=== PATIENT | female | born 1930 | race Hispanic/Latino ===

== ENCOUNTER 2018-04-03 22:50 | Observation (INO) | payer OTHER ==
--- OUTSIDE RECORDS SUMMARY | 2018-04-03 22:52 | XMS REPORT | Clinical Summary ---
:1930 Author Organization [facility] Address [address] [place] [address] Care Team Providers Name Role Phone Asked, No Pcp Primary Care Provider Unavailable Allergies Active Allergy Reactions Severity Noted Date Comments Codeine GI Intolerance 05/20/2016 Current Medications Prescription Sig. Disp. Refills Start Date End Date Status alendronate (FOSAMAX) Take 70 mg by mouth 03/28/2016 Active 70 MG tablet every 7 days. amLODIPine (NORVASC) 10 Take 10 mg by mouth 03/08/2016 Active MG tablet daily. aspirin (ECOTRIN) 81 MG Take 1 tablet(s) Active enteric coated tablet every day by oral route. cholecalciferol, Take 1 capsule(s) Active vitamin D3, (VITAMIN every day by oral D3) 2,000 unit capsule route. capsule cycloSPORINE (RESTASIS) Restasis 0.05 % eye Active 0.05 % ophthalmic drops in a emulsion dropperette ANTIOX Ocuvite Adult 50+ Active #11/OM3/DHA/EPA/LUT/RAMIREZ (OCUVITE ADULT 50+ ORAL) OM-3/E/LINOL/ALA/OLEIC/ [place] 3-6-9 Active GLA/LIP (OMEGA 3-6-9 ORAL) atorvastatin (LIPITOR) Take 10 mg by mouth Active 10 MG tablet daily. lisinopril Take 20 mg by mouth Active (PRINIVIL,ZESTRIL) 20 daily. 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 Essential hypertension 11/18/2016 Hyperparathyroidism, primary 05/20/2016 Resolved Problems Problem Noted Date Resolved Date Aortic valve disorder 11/18/2016 11/20/2017 Encounters Date Type Specialty Care Team Description 11/20/2017 Multidisciplinary Visit Cardiology Juan Yeboah S/P TAVR ( transcatheter aortic valve replacement) (Primary Dx); MD Kristi Essential hypertension 08/13/2017 Orders Only Cardiology Shi Chen MA S/P TAVR (transcatheter aortic valve replacement) (Primary Dx); Aortic valve disorder after 04/02/2017 Family History Medical History Relation Name Comments Hypertension Father Heart failure Mother Relation Name Status Comments Father Mother Social History Tobacco Use Types Packs/Day Years Used Date Never Smoker Smokeless Tobacco: Never Used Alcohol Use Drinks/Week oz/Week Comments No Sex Assigned at Date Recorded Not on file Last Filed Vital Signs Vital Sign Reading Time Taken Blood Pressure 178/77 11/20/2017 1:01 PM [facility] Pulse 72 11/20/2017 1:01 PM [employer] Temperature 36.5 C (97.7 F) 11/20/2017 1:01 PM [employer] Respiratory Rate 14 11/20/2017 1:01 PM [employer] Oxygen Saturation - - Inhaled Oxygen Concentration - - Weight 52.2 kg (115 lb) 11/20/2017 1:01 PM [employer] Height 152.4 cm (5') 11/20/2017 1:01 PM [employer] Body Mass Index 22.46 11/20/2017 1:01 PM [employer]ER Plan of Treatment Date Type Specialty Care Team Description 11/12/2018 Multidisciplinary Visit Cardiology Juan Yeboah MD [address] [address] Health Maintenance Due Date Last Done Comments SHINGRIX VACCINE (#1) 1981 ZOSTER VACCINE 1991 PNEUMOCOCCAL POLYSACCHARIDE VACCINE AGE 65 AND OVER 1996 PNEUMOCOCCAL-13 1996 INFLUENZA VACCINE 04/22/2018 Procedures Procedure Name Priority Date/Time Associated Comments Diagnosis ECG 12-LEAD Routine 11/20/2017 12:59 S/P TAVR Results for this PM [employer] ADVISER (transcatheter procedure are in aortic valve the results replacement) section. ECHOCARDIOGRAM 2D Routine 11/20/2017 10:21 S/P TAVR Results for this COMPLETE W MMODE AM [employer]ATIONAL ADVISER (transcatheter procedure are in SPECTRAL COLOR DOPPLER aortic valve the results (75275) replacement) section. Aortic valve disorder after 04/02/2017 Results ECG 12 lead (11/20/2017 12:59 PM) Ventricular rate 71 [facility] Atrial rate 71 [facility] MT interval 142 [facility] QRSD interval 108 [facility] QT interval 398 [facility] QTC interval 432 [facility] P axis 1 65 [facility] QRS axis 1 -85 [facility] T wave axis 34 [facility] EKG impression Normal sinus rhythm with sinus arrhythmia-Left axis deviation- Possible Lateral infarct (cited on or before 19-NOV-2016)-Inferior-posterior infarct (cited on or before 19-NOV-2016)-Abnormal ECG-In automated comparison with ECG of 19-NOV-2016 [facility] 14:18,-premature ventricular complexes are no longer present-Right bundle branch block is no longer present-Questionable change in initial forces of Anterolateral leads-Electronically Signed By Salima Romano ([id number]) on 2017 8:27:19 PM Performing Organization Address City/State/Zipcode Phone Number [facility] [address] [place] [address] Echocardiogram complete w contrast and 3D if needed (11/20/2017 10:21 AM) Narrative Performed At [facility] Echocardiography Report Pat.Name:RADHA TRAN [facility].ID:[id number] .Date: 11/20/2017Refer.MD:JUAN YEBOAH MD Exam Time: 9:48:00 AMStudy Type:Routine Echo Height:63inWeight: 119lb BSA: 1.55 m2 DOBAge:1930,87Y Sex: FEMALEBP:151/84 HR:75 bpm Sonogrphr: Joan Balbuena, RCS, RCCS, CCT Pat. Stat.:OutpatientRoom:[facility] TapeVol: [facility], Study Status:Final Echo Event ID:[id number] Order ID:[id number] Reason for Study:Valvular disease, known -re-eval with status change, TAVR History / Clinical:Chronic Renal Failure, Hypertension, Valvular Heart Disease; Aortic Stenosis Procedures:2D Echo, Colorflow Doppler Race: SUMMARY: LV EF is lower limits of normal. Wall motion abnormalities present. No paravalvular aortic regurgitation. Normal prosthetic valve velocity and gradient. FINDINGS: LV: LV size is normal. LV EF is lower limits of normal. EstimatedEF is 50-54%. RV: RV size is normal. RV function is normal. LA: LA volume is moderately enlarged. RA: RA size is normal. AO: Aortic root diameter is normal. KAYLEE: No pericardial effusion. IAS:Interatrial septum is aneurysmal. AV: Prosthetic aortic valve. No paravalvular aortic regurgitation.Normal prosthetic valve velocity and gradient.Transcatheter AV Doppler velocity index is 0.68 (normal>0.50). MV: Mild thickening and calcification of mitral leaflets. Mild mitralannular calcification. Mild mitral regurgitation. PV: No structural PV abnormalities noted. TV: No structural TV abnormalities noted. Mild tricuspid regurgitation Skinner: LV relaxation is impaired. LV filling pressure is elevated. Other:Estimated PA systolic pressure is 40 mmHg, assuming a mean RAPof 5 mmHg. MEASUREMENTS: 2D Parasternal Long [place] LVOT 1.8 cmLA Ds4 cm LVIDd4.8 cmIndex3.1 cm/m Ao An2 cm LVIDs3.5 cmAo Rtd 2.6 cm Index1.7 cm/m LV%fs 28.3 % LV Xfad782.3 g(87-129) IVSd 0.9 cmLVM Index 82.8 g/m2 LVPWd0.7 cmRWT0.3 LA Volume LA Vol85.2 mvUjqtd91.9 ml/m DOPPLER AV For Flow/JULI AV pkVel 178.3 cm/s (100-170) AV AC/ET 0.2 AV mnVel 109.1 cm/Bubba TVI35.6 cm AV pkPG 12.7 mmHgAVpkAcRt 2441.5 cm/s2 AV Mean G5.9 mmHgAV GkWz449.1 cm/s2 AV AC 79 msec (83-118) AV Area1.7 cm2(3-5) AV ET326 msec LVOT For Flow LVOT Area2.5 cm2 LVOT SV 61.6 ml KKBDikSsi065.9 cm/sHR70.2 bpm LVOTpkPG 4.6 mmHgLVOT CO4.3 l/min LVOTmnPG 2.3 mmHgLVOT CI2.8 l/m/m2 LVOT TVI24.2 cm WALL MOTION: RESTING WALL MOTION: Wall Index=1.6 Signed 11/20/2017 10:49 AM Vargas Miles MD Procedure Note Interface, Radiology Results In - 11/20/2017 10:49 AM [facility]OCATIONAL [facility]ER [facility] Echocardiography Report Pat.Name: RADHA TRAN Pat.ID: [id number] St.Date: 11/20/2017 Refer.MD: JUAN YEBOAH MD Exam Time: 9:48:00 AM Study Type:Routine Echo Height: 63in Weight: 119lb BSA: 1.55 m2 Age: 11 1930,87Y Sex: FEMALE BP: 151/84 HR: 75 bpm Sonogrphr: Joan Balbuena, RCS, RCCS, CCT Pat. Stat.:Outpatient Room: [address] Vol: [facility], Study Status:Final Echo Event ID:[id number] Order ID: [id number] Reason for Study:Valvular disease, known -re-eval with status change, TAVR History / Clinical:Chronic Renal Failure, Hypertension, Valvular Heart Disease; Aortic Stenosis Procedures:2D Echo, Colorflow Doppler Race: SUMMARY: LV EF is lower limits of normal. Wall motion abnormalities present. No paravalvular aortic regurgitation. Normal prosthetic valve velocity and gradient. FINDINGS: LV: LV size is normal. LV EF is lower limits of normal. Estimated EF is 50-54%. RV: RV size is normal. RV function is normal. LA: LA volume is moderately enlarged. RA: RA size is normal. AO: Aortic root diameter is normal. KAYLEE: No pericardial effusion. IAS: Interatrial septum is aneurysmal. AV: Prosthetic aortic valve. No paravalvular aortic regurgitation. Normal prosthetic valve velocity and gradient. Transcatheter AV Doppler velocity index is 0.68 (normal >0.50). MV: Mild thickening and calcification of mitral leaflets. Mild mitral annular calcification. Mild mitral regurgitation. PV: No structural PV abnormalities noted. TV: No structural TV abnormalities noted. Mild tricuspid regurgitation Skinner: LV relaxation is impaired. LV filling pressure is elevated. Other: Estimated PA systolic pressure is 40 mmHg, assuming a mean RAP of 5 mmHg. MEASUREMENTS: 2D Parasternal Long [place] LVOT 1.8 cm LA Ds 4 cm LVIDd 4.8 cm Index 3.1 cm/m Ao An 2 cm LVIDs 3.5 cm Ao Rtd 2.6 cm Index 1.7 cm/m LV%fs 28.3 % LV Mass 128.3 g (87-129) IVSd 0.9 cm LVM Index 82.8 g/m2 LVPWd 0.7 cm RWT 0.3 LA Volume LA Vol 85.2 ml Index 54.9 ml/m DOPPLER AV For Flow/JULI AV pkVel 178.3 cm/s (100-170) AV AC/ET 0.2 AV mnVel 109.1 cm/s AV TVI 35.6 cm AV pkPG 12.7 mmHg AVpkAcRt 2441.5 cm/s2 AV Mean G 5.9 mmHg AV DeRt 546.1 cm/s2 AV AC 79 msec (83-118) AV Area 1.7 cm2 (3-5) AV ET 326 msec LVOT For Flow LVOT Area 2.5 cm2 LVOT SV 61.6 ml LVOTpkVel 106.9 cm/s HR 70.2 bpm LVOTpkPG 4.6 mmHg LVOT CO 4.3 l/min LVOTmnPG 2.3 mmHg LVOT CI 2.8 l/m/m2 LVOT TVI 24.2 cm WALL MOTION: RESTING WALL MOTION: Wall Index=1.6 Signed 11/20/2017 10:49 AM Vargas Miles MD Performing Organization Address [facility]/State/[facility] Phone Number [facility] [address] [place] [address] after 04/02/2017 Insurance Payer Benefit Plan / Group Subscriber ID Type Phone Address MEDICARE MEDICARE PART A AND B xxxxxxxxxx Medicare [place], [place] AETNA AETNA HMO,POS,EPO, MC/EC xxxxxxxxx HMO [phone] [address]
[2018-04-03] MEDS ORDERED: LEVALBUTEROL 1.25 MG/3 ML NEB ONE (23:17)
[2018-04-03 23:52] LABS: Absolute Lymphocytes (CBC) 2.6 K/uL (0.7-4.9); Absolute Monocytes 0.7 K/uL (0.1-1.3); Absolute Neutrophil 2.8 K/uL (1.8-8.0); Basophils % 0.6 % (0-1.3); Eosinophils % 1.1 % (0-4.4); Hematocrit 35.6 % (36.0-45.0); Lymphocytes % 42.3 % (15.3-44.8); MCH 33.8 pg (27.0-35.0); MCV 96.5 fL (80-100); MPV 9.9 fL (7.6-11.3); RBC Red Blood Cell Count 3.69 M/uL (3.86-4.86)
[2018-04-04 00:04] LABS: Protime INR 0.96
[2018-04-04 00:26] LABS: CKMB Creatine Kinase MB 1.1 ng/mL (0.3-3.6); Magnesium 1.8 mg/dL (1.8-2.4); Potassium 3.8 mmol/L (3.5-5.1)
[2018-04-04] MEDS ORDERED: NA CHLORIDE 0.9% 500 ML ONE (00:52)
--- NOTE | 2018-04-04 03:17 | EDPHYS ---
Physician Documentation [facility] Name: Radha Tran Age: 87 yrs Sex: Female : 1930 Arrival Date: 04/03/2018 Time: 22:51 Bed 2 Private MD: ED Physician Lalit Tee HPI: 04/04 00:01 This 87 yrs old Female presents to ER via EMS with complaints of Shortness Of rn Breath. 00:01 The patient has shortness of breath at rest. Onset: The symptoms/episode began/occurred rn just prior to arrival. Duration: The symptoms are continuous, but are steadily getting better. The patient's shortness of breath is aggravated by nothing, is alleviated by nothing. Associated signs and symptoms: Pertinent positives: This patient does not have any pertinent positive signs or symptoms associated with shortness of breath. Pertinent negatives: chest pain, non-productive cough, productive cough, fever, hemoptysis, loss of consciousness, vomiting. Severity of symptoms: At their worst the symptoms were moderate in the emergency department the symptoms have improved. The patient has not experienced similar symptoms in the past. Sitting at table at rest, + sudden onset sob, no chest pain, felt fine prior, no fever/cough, no hx of dvt/pe, no recent travel, has family wedding tomorrow. . Historical: - Allergies: 04/03 22:55 Codeine; aa1 - Home Meds: 22:55 alendronate 70 mg Oral tab 1 tab once wkly for Post-Menopausal Osteoporosis [Active]; aa1 amlodipine 10 mg tab 1 tab once daily for Hypertension [Active]; lisinopril 20 mg Oral tab 1 tab once daily for Hypertension [Active]; - PMHx: 22:55 Hypertension; Osteoporosis; aa1 - PSHx: 22:55 Aortic valve replacement; aa1 - Immunization history:: Pneumococcal vaccine is up to date, Flu vaccine is up to date. - Social history:: Smoking status: Patient/guardian denies using tobacco. - Ebola Screening: : Patient denies exposure to infectious person Patient denies travel to an Ebola-affected area in the 21 days before illness onset. - Family history:: not pertinent. - Hospitalizations: : No recent hospitalization is reported. ROS: 04/04 00:01 Constitutional: Negative for fever, chills, and weight loss, Eyes: Negative for injury, rn pain, redness, and discharge, Cardiovascular: Negative for chest pain, and edema Respiratory: Negative for cough, wheezing, and pleuritic chest pain, Abdomen/GI: Negative for abdominal pain, nausea, vomiting, diarrhea, and constipation, MS/Extremity: Negative for injury and deformity, Skin: Negative for injury, rash, and discoloration, Neuro: Negative for headache, weakness, numbness, tingling, and seizure. Exam: 00:01 Constitutional: This is a well developed, well nourished patient who is awake, alert, rn and in no acute distress. Head/Face: Normocephalic, atraumatic. Eyes: Pupils equal round and reactive to light, extra-ocular motions intact. Lids and lashes normal. Conjunctiva and sclera are non-icteric and not injected. Cornea within normal limits. Periorbital areas with no swelling, redness, or edema. ENT: no tongue swelling, no stridor Neck: Trachea midline, no thyromegaly or masses palpated, and no cervical lymphadenopathy. Supple, full range of motion without nuchal rigidity, or vertebral point tenderness. No Meningismus. Cardiovascular: Regular rate and rhythm with a normal S1 and S2. No gallops, murmurs, or rubs. Normal PMI, no JVD. No pulse deficits. Respiratory: mild tachypnea, clear bilateral breath sounds Abdomen/GI: Soft, non-tender, with normal bowel sounds. No distension or tympany. No guarding or rebound. No evidence of tenderness throughout. MS/ Extremity: Pulses equal, no cyanosis. Neurovascular intact. Full, normal range of motion. Equal circumference. Neuro: Awake and alert, GCS 15, oriented to person, place, time, and situation. Cranial nerves II-XII grossly intact. Motor strength 5/5 in all extremities. Sensory grossly intact. Vital Signs: 04/03 22:55 BP 130 / 80; Pulse 85; Resp 20; Temp 98.1(O); Pulse Ox 98% on R/A; Weight 52.16 kg; aa1 Height 5 ft. 0 in. (152.40 cm); Pain 0/10; 23:30 BP 129 / 85; Pulse 86; Resp 18; Pulse Ox 99% on 2 lpm NC; aa1 04/04 00:12 BP 133 / 87; Pulse 94; Resp 16; Pulse Ox 98% on 2 lpm NC; Pain 0/10; aa1 01:03 BP 130 / 66; Pulse 92; Resp 20; Pulse Ox 94% on 2 lpm NC; Pain 0/10; aa1 02:22 BP 117 / 66; Pulse 91; Resp 18; Pulse Ox 98% on 2 lpm NC; Pain 0/10; aa1 04:00 BP 128 / 92; Pulse 90; Resp 17; Pulse Ox 97% on R/A; lp1 04/03 22:55 Body Mass Index 22.46 (52.16 kg, 152.40 cm) aa1 MDM: 04/03 22:58 Patient medically screened. rn 04/04 03:15 Differential diagnosis: Anxiety Reaction CHF exacerbation, Chronic Obstructive rn Pulmonary Disease Myocardial Infarction pneumonia, Pneumothorax pulmonary edema, Pulmonary Embolism. Data reviewed: vital signs, nurses notes, lab test result(s), EKG, radiologic studies, CT scan, plain films, and as a result, I will admit patient. Counseling: I had a detailed discussion with the patient and/or guardian regarding: the historical points, exam findings, and any diagnostic results supporting the discharge/admit diagnosis, lab results, radiology results, the need for further work-up and treatment in the hospital. Response to treatment: the patient's symptoms have markedly improved after treatment, the patient is now symptom free, and as a result, I will admit patient. Admission orders: after a detailed discussion of the patient's condition and case, the admit orders are written by me. ED course: Severe CAD on CT chest, no acute findings, will admit given sudden onset dyspnea and no clear etiology on w/u. + bigeminy on monitor may be sign of heart irritability. . 04/03 23:04 Order name: Blood Culture Adult (2) rn 04/03 23:04 Order name: BMP; Complete Time: 00:36 rn 04/03 23:04 Order name: CBC with Diff; Complete Time: 00:01 rn 04/03 23:04 Order name: Ckmb; Complete Time: 00:36 rn 04/03 23:04 Order name: CPK; Complete Time: 00:36 rn 04/03 23:04 Order name: D-Dimer; Complete Time: 00:36 rn 04/03 23:04 Order name: XRAY CXR (1 view) rn 04/03 23:04 Order name: Magnesium; Complete Time: 00:36 rn 04/03 23:04 Order name: NT PRO-BNP; Complete Time: 00:36 rn 04/03 23:04 Order name: PT-INR; Complete Time: 00:07 rn 04/03 23:04 Order name: Ptt, Activated; Complete Time: 00:07 rn 04/03 23:04 Order name: Troponin (emerg Dept Use Only); Complete Time: 00:36 rn 04/04 00:37 Order name: CT Chest For PE Angio rn 04/03 23:04 Order name: EKG; Complete Time: 23:05 rn 04/03 23:04 Order name: Cardiac monitoring; Complete Time: 23:13 rn 04/03 23:04 Order name: EKG - Nurse/Tech; Complete Time: 23:13 rn 04/03 23:04 Order name: IV Saline Lock; Complete Time: 23:13 rn 04/03 23:04 Order name: Labs collected and sent; Complete Time: 23:13 rn 04/03 23:05 Order name: O2 Per Protocol; Complete Time: 23:12 rn 04/03 23:05 Order name: O2 Sat Monitoring; Complete Time: 23:12 rn Administered Medications: 04/03 23:17 Drug: Xopenex 1.25 mg Route: Inhalation; aa1 04/04 00:51 Drug: NS 0.9% 500 ml Route: IV; Rate: bolus; Site: right forearm; aa1 01:20 Follow up: IV Status: Completed infusion aa1 03:35 Drug: Aspirin Chewable Tablet 324 mg Route: PO; lp1 04:19 Follow up: Response: No adverse reaction lp1 04:37 Drug: Magnesium Sulfate 1 grams Route: IVPB; Infused Over: 1 hrs; Site: right forearm; aa1 04:37 Follow up: IV Status: Infusion continued upon admission aa1 Disposition: 04/04/18 03:17 Hospitalization ordered by Katja Okeefe for Inpatient Admission. Preliminary diagnosis are Dyspnea, unspecified, Atherosclerotic heart disease of [place] coronary artery, Ventricular premature depolarization. - Bed requested for Telemetry/MedSurg (Inpatient). - Status is Inpatient Admission. aa1 - Condition is Stable. - Problem is new. - Symptoms have improved. UTI on Admission? No Signatures: Dispatcher [employer] Giulia Ramirez RN RN kl Jacy Collins RN RN aa1 Lalit Tee MD MD rn Pena, Laura, RN RN lp1 Corrections: (The following items were deleted from the chart) 04:18 03:17 Hospitalization Ordered by Katja Okeefe MD for Inpatient Admission. Preliminary diagnosis is Dyspnea, unspecified; Atherosclerotic heart disease of [place] coronary artery; Ventricular premature depolarization. Bed requested for Telemetry/MedSurg (Inpatient). Status is Inpatient Admission. Condition is Stable. Problem is new. Symptoms have improved. UTI on Admission? No. rn 04:18 04:18 04/04/2018 03:17 Hospitalization Ordered by Katja Okeefe MD for Inpatient kl Admission. Preliminary diagnosis is Dyspnea, unspecified; Atherosclerotic heart disease of [place] coronary artery; Ventricular premature depolarization. Bed requested for Telemetry/MedSurg (Inpatient). Status is Inpatient Admission. Condition is Stable. Problem is new. Symptoms have improved. UTI on Admission? No. kl 04:59 04:18 04/04/2018 03:17 Hospitalization Ordered by Katja Okeefe MD for Inpatient aa1 Admission. Preliminary diagnosis is Dyspnea, unspecified; Atherosclerotic heart disease of [place] coronary artery; Ventricular premature depolarization. Bed requested for Telemetry/MedSurg (Inpatient). Status is Inpatient Admission. Condition is Stable. Problem is new. Symptoms have improved. UTI on Admission? No. kl
--- NOTE | 2018-04-04 03:17 | ER ---
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 EMS reports RA O2 sat of 96% on arrival. Denies any hx of respiratory issues. Pt reports symptoms have improved but still feels short of breath. Transition of care: patient was not received from another setting of care. Onset of symptoms was April 03, 2018. Risk Assessment: Do you want to hurt yourself or someone else? Patient reports no desire to harm self or others. Initial Sepsis Screen: Does the patient meet any 2 criteria? No. Patient's initial sepsis screen is negative. Does the patient have a suspected source of infection? No. Patient's initial sepsis screen is negative. Care prior to arrival: IV initiated. 18 GA, in the right forearm, Oxygen administered. via nasal cannula. 22:51 Method Of Arrival: EMS: [facility] aa1 22:51 Acuity: SANCHEZ 3 aa1 Historical: - Allergies: 22:55 Codeine; aa1 - Home Meds: 22:55 alendronate 70 mg Oral tab 1 tab once wkly for Post-Menopausal Osteoporosis [Active]; aa1 amlodipine 10 mg tab 1 tab once daily for Hypertension [Active]; lisinopril 20 mg Oral tab 1 tab once daily for Hypertension [Active]; - PMHx: 22:55 Hypertension; Osteoporosis; aa1 - PSHx: 22:55 Aortic valve replacement; aa1 - Immunization history:: Pneumococcal vaccine is up to date, Flu vaccine is up to date. - Social history:: Smoking status: Patient/guardian denies using tobacco. - Ebola Screening: : Patient denies exposure to infectious person Patient denies travel to an Ebola-affected area in the 21 days before illness onset. - Family history:: not pertinent. - Hospitalizations: : No recent hospitalization is reported. Screenin:58 Abuse screen: Denies threats or abuse. Denies injuries from another. Nutritional aa1 screening: No deficits noted. Tuberculosis screening: No symptoms or risk factors identified. Fall Risk None identified. Assessment: 22:58 General: Appears in no apparent distress. comfortable, Behavior is calm, cooperative, aa1 appropriate for age. Pain: Denies pain. Neuro: Level of Consciousness is awake, alert, obeys commands, Oriented to person, place, time, situation, Speech is normal. Cardiovascular: Denies chest pain, palpitations, Heart tones S1 S2 present Capillary refill < 3 seconds Clubbing of nail beds is absent JVD is absent Patient's skin is warm and dry. Rhythm is regular. Respiratory: Reports shortness of breath at rest Airway is patent Respiratory effort is even, unlabored, Respiratory pattern is regular, symmetrical, Breath sounds are clear bilaterally. GI: No signs and/or symptoms were reported involving the gastrointestinal system. : No signs and/or symptoms were reported regarding the genitourinary system. EENT: No signs and/or symptoms were reported regarding the EENT system. Derm: Skin is intact, is healthy with good turgor, Skin is pink, warm \T\ dry. Musculoskeletal: Circulation, motion, and sensation intact. Capillary refill < 3 seconds. 04/04 00:11 Reassessment: Patient appears in no apparent distress at this time. Patient and/or aa1 family updated on plan of care and expected duration. Pain level reassessed. Patient is alert, oriented x 3, equal unlabored respirations, skin warm/dry/pink. Awaiting provider reassessment Patient states feeling better. 01:03 Reassessment: Patient appears in no apparent distress at this time. Patient and/or aa1 family updated on plan of care and expected duration. Pain level reassessed. Patient is alert, oriented x 3, equal unlabored respirations, skin warm/dry/pink. Awaiting CT scan. 02:21 Reassessment: Patient appears in no apparent distress at this time. Patient and/or aa1 family updated on plan of care and expected duration. Pain level reassessed. Patient is alert, oriented x 3, equal unlabored respirations, skin warm/dry/pink. Awaiting CT results. 03:30 Reassessment: Patient appears in no apparent distress at this time. Patient and/or aa1 family updated on plan of care and expected duration. Pain level reassessed. Patient is alert, oriented x 3, equal unlabored respirations, skin warm/dry/pink. Awaiting provider reassessment. 04:14 Reassessment: Patient is alert, oriented x 3, equal unlabored respirations, skin lp1 warm/dry/pink. Patient assisted to bathroom at this time; Patient denies pain at this time. 04:38 Reassessment: Patient appears in no apparent distress at this time. Patient and/or aa1 family updated on plan of care and expected duration. Pain level reassessed. Patient is alert, oriented x 3, equal unlabored respirations, skin warm/dry/pink. Report given to Mary Ann on 4th floor. Vital Signs: 04/03 22:55 BP 130 / 80; Pulse 85; Resp 20; Temp 98.1(O); Pulse Ox 98% on R/A; Weight 52.16 kg; aa1 Height 5 ft. 0 in. (152.40 cm); Pain 0/10; 23:30 BP 129 / 85; Pulse 86; Resp 18; Pulse Ox 99% on 2 lpm NC; aa1 04/04 00:12 BP 133 / 87; Pulse 94; Resp 16; Pulse Ox 98% on 2 lpm NC; Pain 0/10; aa1 01:03 BP 130 / 66; Pulse 92; Resp 20; Pulse Ox 94% on 2 lpm NC; Pain 0/10; aa1 02:22 BP 117 / 66; Pulse 91; Resp 18; Pulse Ox 98% on 2 lpm NC; Pain 0/10; aa1 04:00 BP 128 / 92; Pulse 90; Resp 17; Pulse Ox 97% on R/A; lp1 04/03 22:55 Body Mass Index 22.46 (52.16 kg, 152.40 cm) aa1 ED Course: 04/03 22:51 Patient arrived in ED. aa1 22:53 Triage completed. aa1 22:55 Arm band placed on right wrist. Patient placed in an exam room, on a stretcher. aa1 22:58 Lalit Tee MD is Attending Physician. rn 22:58 Patient has correct armband on for positive identification. Placed in gown. Bed in low aa1 position. Call light in reach. Side rails up X2. shelter monitor on. Pulse ox on. NIBP on. Warm blanket given. 22:58 Maintain EMS IV. Dressing intact. Site clean \T\ dry. Gauge \T\ site: 18g R FA. aa 1 23:01 Oxygen administration via nasal cannula \T\ 2L/min. aa1 23:12 Jacy Collins RN is Primary Nurse. aa1 23:36 X-ray completed. Portable x-ray completed in exam room. Patient tolerated procedure kw well. 23:40 XRAY CXR (1 view) In Process Unspecified. EDMS 23:41 Initial lab(s) drawn, by me, sent to lab. EKG done, by ED staff, reviewed by Lalit Tee MD. Inserted saline lock: 20 gauge in left forearm, using aseptic technique. Blood collected. 04/04 01:[address] via stretcher. kw1 01:39 CT Chest For PE Angio In Process Unspecified. EDMS 01:39 CT completed. Patient tolerated procedure well. Patient moved back from CT. kw1 03:16 Katja Okeefe MD is Hospitalizing Provider. rn 04:43 No provider procedures requiring assistance completed. Patient admitted, IV remains in aa1 place. Administered Medications: 04/03 23:17 Drug: Xopenex 1.25 mg Route: Inhalation; aa1 04/04 00:51 Drug: NS 0.9% 500 ml Route: IV; Rate: bolus; Site: right forearm; aa1 01:20 Follow up: IV Status: Completed infusion aa1 03:35 Drug: Aspirin Chewable Tablet 324 mg Route: PO; lp1 04:19 Follow up: Response: No adverse reaction lp1 04:37 Drug: Magnesium Sulfate 1 grams Route: IVPB; Infused Over: 1 hrs; Site: right forearm; aa1 04:37 Follow up: IV Status: Infusion continued upon admission aa1 Outcome: 03:17 Decision to Hospitalize by Provider. rn 04:54 Admitted to Tele accompanied by tech, family with patient, via wheelchair, room 407, aa1 with oxygen, with chart, Report called to Mary Ann 04:54 Condition: stable 04:54 Instructed on the need for admit, Demonstrated understanding of instructions. 04:59 Patient left the ED. aa1 Signatures: Dispatcher [employer] EDMS Jacy Collins, RN SUDHEER aa1 Lalit Tee MD MD rn Whitley, Kimberlee kw Christian, Chelsea cc Pena, Laura, RN RN 1 Gus, Giulia kw1
[2018-04-04] MEDS ORDERED: ASPIRIN 81 MG CHEWABLE TABLET ONE (03:32)
[2018-04-04] MEDS ORDERED: Magnesium Sulfate 1gm IVPB 1 GM/50 ML BAG IV ONE (04:38)
[2018-04-04] MEDS ORDERED: ACETAMINOPHEN 500 MG TAB PO PRN (05:10)
[2018-04-04] MEDS ORDERED: ONDANSETRON 4 MG (ODT) TAB PO PRN (05:10)
[2018-04-04] MEDS ORDERED: ASPIRIN EC 81 MG TAB PO SCH (09:00)
--- NOTE | 2018-04-04 09:22 | RAD REPORT ---
EXAM DESCRIPTION: CT - Chest For Pe Angio - 04/04/2018 4:01 am CLINICAL HISTORY: Chest pain, shortness of breath A preliminary written report was provided at the time of the study, and the report was reviewed prio r to final dictation. COMPARISON: None. TECHNIQUE: Dynamically enhanced 3 mm thick images of the chest were obtained during administration o f approximately 150mL Isovue 370 IV contrast. Coronal and oblique reconstruction images were generate d and reviewed. Exam utilizes a protocol to evaluate the pulmonary arterial tree. All CT scans are performed using dose optimization technique as appropriate and may include automated exposure control or mA/KV adjustment according to patient size. FINDINGS: No pulmonary emboli are identified. No acute aortic findings. Ascending aorta stent is in place. No pericardial thickening or effusion. Coronary artery calcifications are present. No infiltrate or mass in the lung parenchyma. No pleural effusion or pleural thickening. Minimal depe ndent atelectasis noted. No mediastinal or hilar suspicious masses. No chest wall masses or abnormal axillary lymphadenopathy. Osteopenic and degenerative bony changes are present. No lytic or blastic component. Multiple thoraci c vertebral compression fractures are present age unknown. Small to moderate hiatal hernia present. Upper abdomen is not visualized sufficiently for additional assessment. IMPRESSION: No pulmonary emboli identified. No suspicious pleural or parenchymal process. There are parenchymal and pleural apical scarring cassidy es. Multiple thoracic spine compression fracture deformities age unknown. Follow-up can be obtained as wa rranted.
--- NOTE | 2018-04-04 09:43 | RAD REPORT ---
EXAM DESCRIPTION: RAD - Chest Single View - 04/03/2018 11:40 pm CLINICAL HISTORY: Chest pain, shortness of breath, dyspnea COMPARISON: July 2016 TECHNIQUE: AP portable chest image was obtained 2320 hours . FINDINGS: No peripheral mass or consolidation. Interstitial markings are prominent, accentuated by a more shallow inspiration. Early interstitial edema or infiltrate is potentially masked. Ascending ao rtic stent is in place. The stent was present on the comparison study. Trachea is midline. Heart size is normal. Pulmonary vasculature within normal limits. No measurable pleural effusion and no pneumot horax. No gross bony abnormality seen. No acute aortic findings suspected. IMPRESSION: No peripheral mass or consolidation. Interstitial markings are prominent, accentuated by shallow inspiration. Significant failure or volum e overload are not suspected. Early interstitial edema or infiltrate could be masked.
--- NOTE | 2018-04-04 10:28 | EKG ---
Test Date: 2018-04-03 Test Time: 23:08:43 Head Usher: MIRI MEASUREMENT RESULTS: Intervals: Rate: 80 AK: 132 QRSD: 124 QT: 424 QTc: 489 Garvin: P: 19 AK: 132 QRS: -59 T: 25 INTERPRETIVE STATEMENTS: Normal sinus rhythm with sinus arrhythmia Right bundle branch block Left anterior fascicular block Bifascicular block Inferior infarct, age undetermined Abnormal ECG Compared to ECG 08/10/2016 06:33:15 Right bundle-branch block now present Bifascicular block now present Myocardial infarct finding now present ST (T wave) deviation no longer present Possible ischemia no longer present Electronically Signed On 04-04-18 10:27:13 CDT by Oscar Kasper
--- NOTE | 2018-04-04 13:45 | CON ---
Date of Consultation: 04/04/2018 She was admitted to Dr. Okeefe's service on 04/04/2018. Reason For Consultation: Congestive heart failure and bigeminy. History Of Present Illness: Ms. Tran is an 87-year-old [place] woman. She has a history o f hypertension, dyslipidemia, coronary artery disease. She is status post aortic valve replacement t hat is bioprosthetic. She came in with sudden onset of shortness of breath without any chest pain, n ausea, vomiting, diaphoresis, PND, orthopnea, pedal edema, or syncope. She has some palpitation. De nied any fever or chills or cough. She had an elevated D-dimer of 683, but her CT angiogram was nega tive for pulmonary embolus. She has slightly elevated troponin of 0.05. Her BNP of 585. Chest x-ra y was clear. She had an echocardiogram in 2016 that was normal and in 2016, a heart catheterization showed diffuse plaquing in the distal vessels, but no focal stenosis. She takes an aspirin for her A VR. She is also on lisinopril, Lipitor, Fosamax, and Norvasc. She is asymptomatic now. Allergies: SHE IS ALLERGIC TO CODEINE. Review of Systems: Negative. Social History: Negative. Family History: Negative. Medications: Listed earlier. Physical Examination: Vital signs: Stable, afebrile. HEENT: Negative. Neck: Supple, no bruit. Chest: Clear. Cardiac: Revealed a regular rhythm and rate without any murmurs, gallops, or rubs. Abdomen: Benign. Extremities: Revealed no clubbing, cyanosis, or edema. Diagnostic Data: As stated earlier. Impression And Plan: An episode of sudden onset of shortness of breath with some bigeminy. Certainl y, the shortness of breath could be related to the bigeminy itself. There is no evidence of pulmonar y embolus. Her troponin elevation and BNP elevation pattern are more consistent with chronic coronar y artery disease rather than an acute coronary artery syndrome. There was no chest pain reported. S he does see Dr. Renee in the office and had an echocardiogram in November, 4 months ago that was actual ly normal. She has documented coronary artery disease with small vessels in 2016 and there is no nee d to repeat any cardiac workup at this point. One thing we may want to consider is send her home on a low-dose beta-brittney because of her ectopy and PVCs with bigeminy. She can go home whenever it is okay with Dr. Okeefe. Her blood pressure and dyslipidemia are stable. Her bioprosthetic aortic va lve seemed to be functioning properly as of November of 2017, MIAH/RUSTAM Voice ID: [id number] Report ID: [id number]
[2018-04-04] MEDS ORDERED: ENOXAPARIN 30 MG/0.3 ML SQ SCH (17:00)
[2018-04-04] MEDS ORDERED: ATORVASTATIN 10 MG TAB PO SCH (21:00)
[2018-04-05] MEDS ORDERED: LISINOPRIL 20 MG TAB PO SCH (09:00)
[2018-04-05] MEDS ORDERED: AMLODIPINE 10 MG TAB PO SCH (09:00)
--- NOTE | 2018-04-05 12:28 | SS ---
Date of Discharge: 04/04/2018 History Of Present Illness: An 87-year-old female who was preparing for her granddaughter's wedding and being dizzy for the past few days before that and when she was working on a wedding dress all of a sudden she became short of breath to where her family got concerned and brought her to the emergency room and she was admitted for observation. By the time she was at the emergency room her shortness of breath has resolved. She has no chest pain and no nausea , no vomiting, no fever and no chills, no cough and voiced no other complaints. Review of Systems: Cardiovascular: No complaints. Genitourinary: No complaints. Respiratory: As above. Gastrointestinal: No complaint. Neurological: No complaint. Psychological: The patient admits that she has been a little bit anxious about the wedding preparation. Past Medical History: 1. Hypertension. 2. Hyperlipidemia. 3. Osteoporosis. 4. Aortic valve replacement surgery. 5. Gastroesophageal reflux disease. Social History: No smoking, alcohol, or drug abuse history. Family History: Noncontributory. Medications: Include aspirin 81 mg p.o. daily, Fosamax 70 mg p.o. q. weekly, amlodipine 10 mg p.o. daily, atorvastatin 10 mg p.o. daily, and lisinopril 20 mg p.o. daily. Allergies: CODEINE. Physical Examination: Vital Signs: Blood pressure 140/80, pulse 85, temperature 97.9. Heart: Regular rate and rhythm. Chest: Clear to auscultation. Abdomen: Soft, benign. Bowel sounds are active. Extremities: No edema. No cyanosis. Peripheral pulses are felt. Neurologic: Alert, oriented, nonfocal, grossly intact. Imaging Studies: The patient's chest x-ray, no acute pathology. Electrocardiogram, normal sinus rhythm with sinus arrhythmia, right bundle- branch block and a left anterior fascicular block. Chest CT with angiogram showed no evidence of pulmonary embolism. Laboratory Data: CBC noted. D-dimer 693. Rapid troponin less than 0.02. Troponin 1 0.05 and 0.11. BNP 585. Hospital Course: The patient was admitted for observation. Her room air pulse oximetry was above 90%. She had no shortness of breath and no symptoms. She was ambulating well and doing fine with no complaints and no shortness of breath. Dr. Kasper, Cardiology has seen the patient, he recommended that she take all her medicines and no cardiac intervention at this time, and since the patient had no evidence of any pulmonary embolism or any infectious process, we thought the patient is stable enough to be discharged to continue her home medicines to follow up with me and with Cardiology. Look discharge orders for details. POLLO/RUSTAM Voice ID: [id number] Report ID: [id number]
[2018-04-06] MEDS ORDERED: ALENDRONATE 70 MG TAB PO SCH (06:00)
== END 2018-04-04 14:38 | disposition home or self-care (01) ==
LOC: ER 22:50 → ERHOLD 04-04 03:30 → 4TH 04-04 04:47
PROVIDERS: ADMIT Internal Medicine; ATTEND Internal Medicine
DX: R06.02 Shortness of breath (principal); R00.8 Other abnormalities of heart beat; I10 Essential (primary) hypertension; E78.5 Hyperlipidemia, unspecified; M81.0 Age-related osteoporosis without current pathological fracture; K21.9 Gastro-esophageal reflux disease without esophagitis; I25.10 Atherosclerotic heart disease of native coronary artery without angina pectoris; Z95.2 Presence of prosthetic heart valve; Z79.82 Long term (current) use of aspirin
CPT/HCPCS: 36415; 71045; 71275; 80048; 82550; 82553; 83735; 83880; 84484 ×3; 85025; 85379; 85610; 85730; 87040 ×2; 93005; 96374; 99285; G0378 ×2; J3475; Q9967

== ENCOUNTER 2019-01-18 20:05 | Emergency (ER) | payer OTHER ==
--- OUTSIDE RECORDS SUMMARY | 2019-01-18 20:08 | XMS REPORT | Clinical Summary ---
:1930 Author Organization [facility] Address [address] [place] [id number] Care Team Providers Name Role Phone Asked, No Pcp Primary Care Provider Unavailable Allergies Active Allergy Reactions Severity Noted Date Comments Codeine GI Intolerance 05/20/2016 Medications Medication Sig Dispensed Refills Start Date End Date Status alendronate (FOSAMAX) Take 70 mg by mouth 0 03/28/2016 Active 70 MG tablet every 7 days. amLODIPine (NORVASC) Take 10 mg by mouth 0 03/08/2016 Active 10 MG tablet daily. aspirin (ECOTRIN) 81 Take 1 tablet(s) 0 Active MG enteric coated every day by oral tablet route. cholecalciferol, Take 1 capsule(s) 0 Active vitamin D3, (VITAMIN every day by oral D3) 2,000 unit route. capsule capsule cycloSPORINE Restasis 0.05 % eye 0 Active (RESTASIS) 0.05 % drops in a ophthalmic emulsion dropperette ANTIOX Ocuvite Adult 50+ 0 Active #11/OM3/DHA/EPA/LUT/Z EA (OCUVITE ADULT 50+ ORAL) OM-3/E/LINOL/ALA/OLEI [place] 3-6-9 0 Active C/GLA/LIP (OMEGA 3-6-9 ORAL) atorvastatin Take 10 mg by mouth 0 Active (LIPITOR) 10 MG daily. tablet lisinopril Take 20 mg by mouth 0 Active (PRINIVIL,ZESTRIL) 20 daily. 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 Essential hypertension 11/18/2016 Hyperparathyroidism, primary 05/20/2016 Encounters Date Type Specialty Care Team Description 11/12/2018 Multidisciplinary Visit Cardiology Juan Yeboah S/P TAVR (transcatheter aortic valve replacement) (Primary Dx) 06/22/2018 Orders Only Cardiology Shi Chen MA S/P TAVR (transcatheter aortic valve replacement) (Primary Dx) after 01/17/2018 Family History Medical History Relation Name Comments Hypertension Father Heart failure Mother Relation Name Status Comments Father Mother Social History Tobacco Use Types Packs/Day Years Used Date Never Smoker Smokeless Tobacco: Never Used Alcohol Use Drinks/Week oz/Week Comments No Sex Assigned at Date Recorded Not on file Job Start Date Occupation Industry Not on file Not on file Not on file Travel History Travel Start Travel End No recent travel history available. Last Filed Vital Signs Vital Sign Reading Time Taken Blood Pressure 155/82 11/12/2018 12:49 PM [employer] SALES [employer]PRESENT[employer] Pulse 92 11/12/2018 12:49 PM [employer] SALES REPRESENT[employer]IVE Temperature 36.3 C (97.3 F) 11/12/2018 12:49 PM [employer] SALES REPRESENT[employer]IVE Respiratory Rate 16 11/12/2018 12:49 PM [employer] SALES REPRESENTATIVE Oxygen Saturation - - Inhaled Oxygen Concentration - - Weight 52.2 kg (115 lb) 11/12/2018 12:49 PM [employer] SALES REPRESENTATIVE Height 152.4 cm (5') 11/12/2018 12:49 PM [employer] SALES REPRESENTATIVE Body Mass Index 22.46 11/12/2018 12:49 PM [employer] SALES REPRESENTATIVE Plan of Treatment Date Type Specialty Care Team Description 11/11/2019 Multidisciplinary Visit Cardiology Juan Yeboah MD [address] [address] Health Maintenance Due Date Last Done Comments SHINGLES VACCINES (#1) 1981 65+ PNEUMOCOCCAL VACCINE (1 of 2 - PCV13) 1996 PNEUMOCOCCAL POLYSACCHARIDE VACCINE AGE 65 AND OVER 1996 INFLUENZA VACCINE 04/22/2019 Procedures Procedure Name Priority Date/Time Associated Comments Diagnosis ECG 12-LEAD Routine 11/12/2018 12:51 S/P TAVR Results for this PM [employer] SALES REPRESENTATIVE (transcatheter procedure are in aortic valve the results replacement) section. ECHOCARDIOGRAM 2D Routine 11/12/2018 10:31 S/P TAVR Results for this COMPLETE W MMODE AM UTILITY SALES REPRESENTATIVE (transcatheter procedure are in SPECTRAL COLOR DOPPLER aortic valve the results (74626) replacement) section. 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-^^^ Bifascicular block ^^^-Inferior infarct (cited on or before 19-NOV-2016)-Anterolateral infarct ( cited on or before [facility] M[facility] 19-NOV-2016)-Abnormal ECG-In automated comparison with ECG of 12-NOV-2018 12: 51,-No significant change was found- Narrative Performed At Performing Organization Address City/State/Zipcode Phone Number [facility] M[facility] [address] [place] [address] Echocardiogram complete w contrast and 3D if needed (11/12/2018 10:31 AM UTILITY SALES REPRESENTATIVE) Narrative Performed At [facility] Echocardiography Report Pat.Name:RADHA TRAN Bannert.ID:[id number] .Date: 11/12/2018 Refer.MD:JUAN YEBOAH MD Exam Time: 10:07:00 AM Study Type:Routine Echo Height:60inWeight: 115lb BSA: 1.48 m2 DOBAge:1930,88Y Sex: FEMALEBP:167/87 HR:75 bpm Sonogrphr: Joan Balbuena, RCS, RCCS, CCT Pat. Stat.:OutpatientRoom[facility] TapeVol: [facility], Study Status:Final Echo Event ID:[id number] Order ID:[id number] Reason for Study:S/P TAVR (transcatheter aortic valve replacement) [Z95.2 (ICD-10-CM)] History / Clinical:Chronic Renal Failure, Hypertension, Valvular Heart Disease; Aortic Stenosis Procedures:2D Echo, Colorflow Doppler Race: SUMMARY: Normal LV size with low normal function. Wall motion abnormalities noted. Normal RV size and function. 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 Severe left atrial dilation. Well-seated transcatheter aortic valve with normal function. Elevated filling pressure. FINDINGS: LV: LV size is normal. There is moderate concentric LV hypertrophy.LV EF is lower limits of normal. Estimated EF is50-54%. RV: RV size is normal. RV systolic function is normal. LA: LA volume is severely enlarged. RA: RA size is normal. AO: Aortic root diameter is normal. KAYLEE: No pericardial effusion. AV: Well-seated transcatheter aortic valve. No paravalvular aorticregurgitation. Normal prosthetic valve velocity and gradient.Transcatheter AV Doppler velocity index is 0.60 (normal>0.50). MV: Mild thickening and calcification of mitral leaflets. The posteriorleaflet is tethered, Mild mitral annular calcification.Mild to moderate mitral regurgitation. PV: No structural PV abnormalities noted. TV: No structural TV abnormalities noted. Skinner: LV relaxation is impaired. LV filling pressure is elevated. Other:Estimated PA systolic pressure is 37 mmHg, assuming a mean RAPof 5 mmHg. MEASUREMENTS: 2D Parasternal [place] LVOT 1.7 cmLA Ds4.3 cm LVIDd4.8 cmIndex3.2 cm/m Ao An2.2 cm LVIDs3.3 cmAo Rtd 2.4 cm Index1.6 cm/m LV%fs 30.7 % LV Aapk867.3 g(87-129) IVSd 1.3 cmLVM [place]208.3 g/m2 LVPWd0.9 cmRWT0.4 LA Volume LA Vol75.1 vkHjvag57.8 ml/m RA Sng Plane RA Area 13.8 cm2(8.3-19.5) RA Vol32.7 ml Index22.1 ml/m RA LngAx 4.8 cm DOPPLER AV For Flow/JULI AV pkVel 152.1 cm/s (100-170) AV AC/ET 0.3 AV mnVel99.3 cm/Bubba TVI30.4 cm AV pkPG9.3 mmHgAVpkAcRt 3100.3 cm/s2 AV Mean G4.8 mmHgAV DhCc765.3 cm/s2 AV AC 80 msec (83-118) AV Area1.4 cm2(3-5) AV ET306 msec LVOT For Flow LVOT Area2.3 cm2 LVOT SV 41.1 ml LVOTpkVel 87.1 cm/sHR69.7 bpm LVOTpkPG 3 mmHgLVOT CO2.9 l/min LVOTmnPG 1.6 mmHgLVOT CI1.9 l/m/m2 LVOT TVI18.1 cm TV Pressure Gradient TV PkVel 282.7 cm/sTV PG 32 mmHg WALL MOTION: RESTING WALL MOTION: Basal Inferior wall is akinetic.Basal Inferolateral, Mid Inferior, Mid Inferolateral cantrell are hypokinetic. Normal in all other cantrell. Wall Index=1.3 Signed 11/13/2018 02:35 PM Ninfa Srinivasan M.D. Procedure Note Interface, Radiology Results In - 11/13/2018 2:56 PM UTILITY SALES REPRESENTATIVE [facility] Echocardiography Report Pat.Name: RADHA TRAN Nnacy.ID: [id number] .Date: 11/12/2018 Refer.MD: JUAN YEBOAH MD Exam Time: 10:07:00 AM Study Type:Routine Echo Height: 60in Weight: 115lb BSA: 1.48 m2 Age: 11 1930,88Y Sex: FEMALE BP: 167/87 HR: 75 bpm Sonogrphr: Joan Balbuena, RCS, RCCS, CCT Pat. Stat.:Outpatient Room: [address] Vol: [facility], Study Status:Final Echo Event ID:[id number] Order ID: [id number] Reason for Study:S/P TAVR (transcatheter aortic valve replacement) [Z95.2 (ICD-10-CM)] History / Clinical:Chronic Renal Failure, Hypertension, Valvular Heart Disease; Aortic Stenosis Procedures:2D Echo, Colorflow Doppler Race: SUMMARY: Normal LV size with low normal function. Wall motion abnormalities noted. Normal RV size and function. 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 Severe left atrial dilation. Well-seated transcatheter aortic valve with normal function. Elevated filling pressure. FINDINGS: LV: LV size is normal. There is moderate concentric LV hypertrophy. LV EF is lower limits of normal. Estimated EF is 50-54%. RV: RV size is normal. RV systolic function is normal. LA: LA volume is severely enlarged. RA: RA size is normal. AO: Aortic root diameter is normal. KAYLEE: No pericardial effusion. AV: Well-seated transcatheter aortic valve. No paravalvular aortic regurgitation. Normal prosthetic valve velocity and gradient. Transcatheter AV Doppler velocity index is 0.60 (normal >0.50). MV: Mild thickening and calcification of mitral leaflets. The posterior leaflet is tethered, Mild mitral annular calcification. Mild to moderate mitral regurgitation. PV: No structural PV abnormalities noted. TV: No structural TV abnormalities noted. Skinner: LV relaxation is impaired. LV filling pressure is elevated. Other: Estimated PA systolic pressure is 37 mmHg, assuming a mean RAP of 5 mmHg. MEASUREMENTS: 2D Parasternal [place] LVOT 1.7 cm LA Ds 4.3 cm LVIDd 4.8 cm Index 3.2 cm/m Ao An 2.2 cm LVIDs 3.3 cm Ao Rtd 2.4 cm Index 1.6 cm/m LV%fs 30.7 % LV Mass 191.3 g (87-129) IVSd 1.3 cm LVM Index 129.3 g/m2 LVPWd 0.9 cm RWT 0.4 LA Volume LA Vol 75.1 ml Index 50.8 ml/m RA Sng Plane RA Area 13.8 cm2 (8.3-19.5) RA Vol 32.7 ml Index 22.1 ml/m RA LngAx 4.8 cm DOPPLER AV For Flow/JULI AV pkVel 152.1 cm/s (100-170) AV AC/ET 0.3 AV mnVel 99.3 cm/s AV TVI 30.4 cm AV pkPG 9.3 mmHg AVpkAcRt 3100.3 cm/s2 AV Mean G 4.8 mmHg AV DeRt 496.3 cm/s2 AV AC 80 msec (83-118) AV Area 1.4 cm2 (3-5) AV ET 306 msec LVOT For Flow LVOT Area 2.3 cm2 LVOT SV 41.1 ml LVOTpkVel 87.1 cm/s HR 69.7 bpm LVOTpkPG 3 mmHg LVOT CO 2.9 l/min LVOTmnPG 1.6 mmHg LVOT CI 1.9 l/m/m2 LVOT TVI 18.1 cm TV Pressure Gradient TV PkVel 282.7 cm/s TV PG 32 mmHg WALL MOTION: RESTING WALL MOTION: Basal Inferior wall is akinetic. Basal Inferolateral, Mid Inferior, Mid Inferolateral cantrell are hypokinetic. Normal in all other cantrell. Wall Index=1.3 Signed 11/13/2018 02:35 PM Ninfa Srinivasan M.D. Performing Organization Address City/State/Zipcode Phone Number [facility] [phone] [place] [address] after 01/17/2018 Insurance Payer Benefit Plan / Group Subscriber ID Type Phone Address MEDICARE MEDICARE PART A AND B xxxxxxxxxx Medicare [place], [place] AETNA AETNA HMO,POS,EPO, MC/EC xxxxxxxxx HMO Advance Directives Patient has advance care planning documents on file. For more information, please contact:[id number] [place] [address]
[2019-01-18 20:43] LABS: Absolute Lymphocytes (CBC) 2.5 K/uL (0.7-4.9); Absolute Monocytes 0.4 K/uL (0.1-1.3); Absolute Neutrophil 4.8 K/uL (1.8-8.0); Basophils % 0.5 % (0-1.3); Eosinophils % 0.6 % (0-4.4); Hematocrit 38.9 % (36.0-45.0); MPV 9.8 fL (7.6-11.3); Monocytes % 5.3 % (3.3-12.3); RBC Red Blood Cell Count 3.96 M/uL (3.86-4.86)
[2019-01-18] MEDS ORDERED: ONDANSETRON 4 MG/2 ML VIAL ONE (20:43)
[2019-01-18 21:02] LABS: Albumin 3.8 g/dL (3.4-5.0); Bilirubin Direct 0.2 mg/dL (0-0.2); Bilirubin Total 0.5 mg/dL (0.2-1.0); Potassium 3.8 mmol/L (3.5-5.1); Protein, Total 7.8 g/dL (6.4-8.2)
[2019-01-19] MEDS ORDERED: MAGNE/ALUM HYDROXD 30 ML UCUP ONE (00:53)
[2019-01-19] MEDS ORDERED: PANTOPRAZOLE 40 MG INJ ONE (00:53)
[2019-01-19] MEDS ORDERED: LIDOCAINE VISCOUS 2% SOLN 15 ML UDC ONE (00:53)
--- NOTE | 2019-01-19 01:11 | EDPHYS ---
Physician Documentation [facility] Name: Radha Tran Age: 88 yrs Sex: Female : 1930 Arrival Date: 01/18/2019 Time: 20:08 Bed 26 Private MD: Katja Okeefe F ED Physician Del Sterling HPI: 01/19 06:02 This 88 yrs old Female presents to ER via Wheelchair with complaints of tw4 Abdominal Pain, Constipation, Vomiting. 06:03 The patient presents to the emergency department with nausea, vomiting. Onset: The tw4 symptoms/episode began/occurred 1 day(s) ago. Possible causes: unknown. The symptoms are aggravated by nothing. The symptoms are alleviated by nothing. Associated signs and symptoms: Pertinent positives: constipation. Severity of symptoms: At their worst the symptoms were mild in the emergency department the symptoms are unchanged. The patient has not experienced similar symptoms in the past. 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 - Social history:: Smoking status: Patient/guardian denies using tobacco. - Ebola Screening: : No symptoms or risks identified at this time. ROS: 01/19 06:23 Constitutional: Negative for fever, chills, and weight loss, Eyes: Negative for injury, tw4 pain, redness, and discharge, ENT: Negative for injury, pain, and discharge, Cardiovascular: Negative for chest pain, palpitations, and edema, Respiratory: Negative for shortness of breath, cough, wheezing, and pleuritic chest pain, MS/Extremity: Negative for injury and deformity, Skin: Negative for injury, rash, and discoloration, Neuro: Negative for headache, weakness, numbness, tingling, and seizure. Abdomen/GI: Positive for abdominal pain, nausea and vomiting, nausea, vomiting, constipation, Negative for diarrhea, anorexia, dysphagia, hematemesis, black/tarry stool, rectal pain, rectal bleeding, bowel incontinence, flatulence. Exam: 06:23 Constitutional: This is a well developed, well nourished patient who is awake, alert, tw4 and in no acute distress. Head/Face: Normocephalic, atraumatic. Chest/axilla: Normal chest wall appearance and motion. Nontender with no deformity. No lesions are appreciated. Cardiovascular: Regular rate and rhythm with a normal S1 and S2. No gallops, murmurs, or rubs. Normal PMI, no JVD. No pulse deficits. Respiratory: Lungs have equal breath sounds bilaterally, clear to auscultation and percussion. No rales, rhonchi or wheezes noted. No increased work of breathing, no retractions or nasal flaring. Abdomen/GI: Soft, non-tender, with normal bowel sounds. No distension or tympany. No guarding or rebound. No evidence of tenderness throughout. Back: No spinal tenderness. No costovertebral tenderness. Full range of motion. MS/ Extremity: Pulses equal, no cyanosis. Neurovascular intact. Full, normal range of motion. Neuro: Awake and alert, GCS 15, oriented to person, place, time, and situation. Cranial nerves II-XII grossly intact. Motor strength 5/5 in all extremities. Sensory grossly intact. Cerebellar exam normal. Normal gait. Vital Signs: 01/18 20:20 BP 150 / 73; Pulse 81; Resp 18; Temp 98(O); Pulse Ox 98% on R/A; Weight 55.34 kg; lp1 Height 5 ft. 3 in. (160.02 cm); Pain 6/10; 20:45 BP 133 / 63 LA Supine; Pulse 76; Resp 16 S; Pulse Ox 96% on R/A; rv 21:30 BP 111 / 58; Pulse 71; Resp 17; Pulse Ox 99% on R/A; rv 01/19 00:26 Pulse 93; Resp 18; Pulse Ox 96% ; Pain 0/10; mg2 01:10 BP 101 / 85; Pulse 92; Resp 19; Pulse Ox 97% ; rv 01/18 20:20 Body Mass Index 21.61 (55.34 kg, 160.02 cm) lp1 MDM: 01/18 20:23 Patient medically screened. tw01/19 06:23 Differential diagnosis: Nonspecific abd pain, gastritis, cholecystitis. Data reviewed: vital signs, nurses notes. Data interpreted: Pulse oximetry: Interpretation:. Counseling: I had a detailed discussion with the patient and/or guardian regarding: the historical points, exam findings, and any diagnostic results supporting the discharge/admit diagnosis, lab results. Medication response: GI Cocktail relieved the patient's pain. The symptoms have resolved. Response to treatment: and as a result, I will discharge patient. Special discussion: Based on the patient's Hx, exam, and Dx evaluation, there is no indication for emergent surgery or inpatient Tx. It is understood by the patient/guardian that if the Sx's persist or worsen they need to return immediately for re-evaluation. I discussed with the patient/guardian in detail that at this point there is no indication for admission to the hospital. It is understood, however, that if the symptoms persist or worsen the patient needs to return immediately for re-evaluation. ED course: CT negative for any acute abnormalities. Pt states that she felt better after GI cocktail. 01/18 20:23 Order name: Basic Metabolic Panel; Complete Time: 21:41 01/18 21:41 Interpretation: Normal except: GLUC 139; BUN 23; GFR 46. 01/18 20:23 Order name: CBC with Diff; Complete Time: 21:41 01/18 21:41 Interpretation: Normal except: PLT 149. 01/18 20:23 Order name: Creatinine for Radiology; Complete Time: 21:41 01/18 21:41 Interpretation: Normal except: GFR 47. 01/18 20:23 Order name: Hepatic Function; Complete Time: 21:41 01/18 21:41 Interpretation: Normal except: ALK 43; GLOB 4.0; A/G 1.0. 01/18 20:23 Order name: Lipase; Complete Time: 21:41 01/18 21:41 Interpretation: Within normal limits: LIP 198. 01/18 20:23 Order name: Abdomen 1 View (KUB) XRAY 01/18 20:23 Order name: IV Saline Lock; Complete Time: 20:47 01/18 20:23 Order name: Labs collected and sent; Complete Time: 20:47 tw4 01/18 21:56 Order name: CT Abd/Pelvis - W/Contrast tw4 Administered Medications: 01/18 20:47 Drug: Zofran 4 mg Route: IVP; Site: right antecubital; mg2 01/19 00:46 Follow up: Response: No adverse reaction; Marked relief of symptoms mg2 00:46 Drug: ProTONIX 40 mg Route: IVP; Site: right antecubital; mg2 01:12 Follow up: Response: Pain is decreased rv 00:47 Drug: GI Cocktail without - (Maalox Suspension 30 ml, Lidocaine Liquid 2 % 15 mg2 ml) Route: PO; 01:12 Follow up: Response: Pain is decreased rv Disposition: 01/19/19 01:10 Discharged to Home. Impression: Gastritis, unspecified. - Condition is Stable. - Discharge Instructions: Gastritis, Adult, [id number], Constipation, Adult, [id number]-[id number]. - Prescriptions for Bentyl 20 mg Oral Tablet - take 2 tablet by ORAL route every 6 hours As needed; 40 tablet. Colace 100 mg Oral Tablet - take 1 tablet by ORAL route every 12 hours; 14 tablet. Protonix 40 mg Oral Tablet - take 1 tablet by ORAL route once daily; 30 tablet. - Medication Reconciliation Form, Thank You Letter, Antibiotic Education, Prescription Opioid Use form. - Follow up: Katja Okeefe MD; When: Upon discharge from the Emergency Department; Reason: If symptoms return, Recheck today's complaints, Continuance of care. - Problem is new. - Symptoms have improved. Signatures: Dispatcher [employer] EDIA Yesenia Riggs RN RN lp1 Del Sterling MD MD tw4 Hitesh Merchant RN RN mg2 Surjit Desai RN RN rv Corrections: (The following items were deleted from the chart) 01:28 01:10 01/19/2019 01:10 Discharged to Home. Impression: Gastritis, unspecified. rv Condition is Stable. Forms are Medication Reconciliation Form, Thank You Letter, Antibiotic Education, Prescription Opioid Use. Follow up: Katja Okeefe; When: Upon discharge from the Emergency Department; Reason: If symptoms return, Recheck today's complaints, Continuance of care. Problem is new. Symptoms have improved. tw4
--- NOTE | 2019-01-19 01:11 | ER ---
Nurse's Notes [facility] Name: Radha Tran Age: 88 yrs Sex: Female : 1930 Arrival Date: 01/18/2019 Time: 20:08 Bed 26 Private MD: Katja Okeefe F Diagnosis: Gastritis, unspecified Presentation: 01/18 20:20 Presenting complaint: Patient states: Constipation x 1 week, vomited x1 today; Patient lp1 states small BM today after laxatives but continues to feel constipation, bloated; Has appt with Dr. Godoy for GI on Friday but abdominal pain today; Seen here 2 weeks ago for same symptoms and gallbladder checked with ultrasound. Transition of care: patient was not received from another setting of care. Onset of symptoms was January 18, 2019. Risk Assessment: Do you want to hurt yourself or someone else? Patient reports no desire to harm self or others. Initial Sepsis Screen: Does the patient meet any 2 criteria? No. Patient's initial sepsis screen is negative. Does the patient have a suspected source of infection? No. Patient's initial sepsis screen is negative. Care prior to arrival: None. 20:20 Method Of Arrival: Wheelchair lp1 20:20 Acuity: SANCHEZ 3 lp1 Historical: - Allergies: 20:20 Codeine; lp1 - Home Meds: 20:20 alendronate 70 mg Oral tab 1 tab once wkly for Post-Menopausal Osteoporosis [Active]; lp1 Norvasc 5 mg Oral tab 1 tab once daily [Active]; lisinopril 10 mg oral tab once daily [Active]; aspirin 81 mg Oral TbEC 1 tab once daily [Active]; - PMHx: 20:20 Hypertension; Osteoporosis; lp1 - PSHx: 20:20 Appendectomy; Aortic valve replacement; lp1 - Immunization history:: Adult Immunizations up to date. - Social history:: Smoking status: Patient/guardian denies using tobacco. - Ebola Screening: : No symptoms or risks identified at this time. Screenin:00 Abuse screen: Denies threats or abuse. Denies injuries from another. Nutritional rv screening: No deficits noted. Tuberculosis screening: No symptoms or risk factors identified. Fall Risk None identified. Assessment: 20:59 General: Appears in no apparent distress. uncomfortable, Behavior is calm, cooperative. rv Pain: Complains of pain in abdomen. Neuro: Level of Consciousness is awake, alert, obeys commands, Oriented to person, place, time, situation. Cardiovascular: Capillary refill < 3 seconds. Respiratory: Airway is patent. GI: Bowel sounds present X 4 quads. Abd is soft and non tender X 4 quads. : No signs and/or symptoms were reported regarding the genitourinary system. EENT: No signs and/or symptoms were reported regarding the EENT system. Derm: Skin is intact. Musculoskeletal: No signs and/or symptoms reported regarding the musculoskeletal system. 23:19 Reassessment: PATIENT IS RUNNING PVCs. rv 01/19 01:11 Reassessment: Patient appears in no apparent distress at this time. Patient and/or rv family updated on plan of care and expected duration. Pain level reassessed. Patient is alert, oriented x 3, equal unlabored respirations, skin warm/dry/pink. Vital Signs: 01/18 20:20 BP 150 / 73; Pulse 81; Resp 18; Temp 98(O); Pulse Ox 98% on R/A; Weight 55.34 kg; lp1 Height 5 ft. 3 in. (160.02 cm); Pain 6/10; 20:45 BP 133 / 63 LA Supine; Pulse 76; Resp 16 S; Pulse Ox 96% on R/A; rv 21:30 BP 111 / 58; Pulse 71; Resp 17; Pulse Ox 99% on R/A; rv 01/19 00:26 Pulse 93; Resp 18; Pulse Ox 96% ; Pain 0/10; mg2 01:10 BP 101 / 85; Pulse 92; Resp 19; Pulse Ox 97% ; rv 01/18 20:20 Body Mass Index 21.61 (55.34 kg, 160.02 cm) lp1 ED Course: 01/18 20:08 Patient arrived in ED. es 20:09 Katja Okeefe MD is Private Physician. es 20:23 Del Sterling MD is Attending Physician. tw4 20:26 Surjit Desai RN is Primary Nurse. rv 20:41 Inserted saline lock: 20 gauge in right forearm, using aseptic technique. Blood rv collected. 20:51 X-ray completed. Portable x-ray completed in exam room. Patient tolerated procedure ml well. 21:00 Abdomen 1 View (KUB) XRAY In Process Unspecified. EDMS 21:05 Triage completed. lp1 21:05 Arm band placed on left wrist. lp1 21:21 Patient has correct armband on for positive identification. Bed in low position. Call rv light in reach. Side rails up X 1. Adult w/ patient. Pulse ox on. NIBP on. 22:[address] via stretcher. nj 22:15 CT completed. Patient tolerated procedure well. Patient moved back from CT. vm2 22:26 CT Abd/Pelvis - W/Contrast In Process Unspecified. EDMS 01/19 01:10 Katja Okeefe MD is Referral Physician. tw4 01:27 No provider procedures requiring assistance completed. IV discontinued, intact, rv bleeding controlled, No redness/swelling at site. Pressure dressing applied. Administered Medications: 01/18 20:47 Drug: Zofran 4 mg Route: IVP; Site: right antecubital; mg2 01/19 00:46 Follow up: Response: No adverse reaction; Marked relief of symptoms mg2 00:46 Drug: ProTONIX 40 mg Route: IVP; Site: right antecubital; mg2 01:12 Follow up: Response: Pain is decreased rv 00:47 Drug: GI Cocktail without - (Maalox Suspension 30 ml, Lidocaine Liquid 2 % 15 mg2 ml) Route: PO; 01:12 Follow up: Response: Pain is decreased rv Outcome: 01:10 Discharge ordered by . tw4 01:27 Discharged to home ambulatory. rv 01:27 Condition: good 01:27 Discharge instructions given to patient, family, Instructed on discharge instructions, follow up and referral plans. medication usage, Demonstrated understanding of instructions, follow-up care, medications, Prescriptions given X 3. 01:28 Patient left the ED. rv Signatures: Dispatcher [employer] EDMA Candy España Melissa ml Pena, Laura, RN RN lp1 Nilton Whitlock Victoria 2 Del Sterling MD MD tw4 Hitesh Merchant RN RN mg2 Surjit Desai RN RN rv
--- NOTE | 2019-01-19 10:45 | RAD REPORT ---
EXAM DESCRIPTION: CT - Abdomen Pelvis W Contrast - 01/18/2019 10:54 pm CLINICAL HISTORY: 88 years Female, ABD PAIN COMPARISON: None. TECHNIQUE: 5 mm arterial phase axial images of the abdomen were obtained. 5 mm venous phase axial im ages of the abdomen and pelvis were obtained with intravenous contrast. 3 mm coronal and sagittal ref ormatted images were obtained. This exam was performed according to our departmental dose-optimization program, which includes autom ated exposure control, adjustment of the mA and/or kV according to patient size and/or use of iterati ve reconstruction technique. INTRAVENOUS CONTRAST: Not documented. Please refer to medical record. FINDINGS: Lung bases: There are no active infiltrates. There is a moderate-sized sliding-type hiatal hernia. Liver: Normal. Spleen: Normal. Pancreas: Normal. Gallbladder: Absent. Right adrenal gland: Normal. Left adrenal gland: Normal. Right kidney: Normal. Left kidney: Normal. Retroperitoneal structures: There is extensive atherosclerotic disease about the abdominal aorta and its branch vessels. Bowel survey: There is moderately severe pancolonic diverticulosis. There is increased stool within the proximal ascending colon, distal descending colon, and rectosigmo id colon. There are multiple mildly distended small bowel loops with short air-fluid levels. The distal ileum is unremarkable. The cecum is positioned in the right upper quadrant and is distended with gas. A mobile cecum should be considered. Urinary bladder: Normal. Uterus and adnexa: Normal. Peritoneal cavity: Normal. Mesentery structures: Normal. Abdominal wall: No hernia. Bony structures: There is osteoporosis. Moderately severe compression deformities are identified invo lving the T12, L1, L2, and L4 vertebra. IMPRESSION: 1. Moderately severe generalized ileus with multiple distended small bowel loops and inc reased stool in portions of the colon. 2. Questionable mobile cecum. 3. Moderate severe pancolonic diverticulosis. 4. Moderate-sized hiatal hernia. 5. Osteoporosis. 6. Atherosclerotic disease. Electronically signed by: Miki Moya MD 01/18/2019 10:39 PM CDT Due to temporary technical issues with the PACS/Fluency reporting system, reports are being signed by the in house radiologist as a courtesy to ensure prompt reporting. The interpreting radiologist is f ully responsible for the content of the report.
--- NOTE | 2019-01-19 10:46 | RAD REPORT ---
EXAM DESCRIPTION: RAD - Abdomen 1 View (KUB) - 01/18/2019 9:01 pm CLINICAL HISTORY: 88 years old and is Female; ABD PAIN TECHNIQUE: Frontal supine view of the abdomen/pelvis. COMPARISON: No relevant prior studies available. FINDINGS: Limitations: None. Intraperitoneal space: Scattered air and stool identified without distention. Gastrointestinal tract: Unremarkable. No dilation. Bones/joints: Degenerative changes present in the spine with probable chronic mild height loss o f multiple lumbar vertebra. Vasculature: Aortic stent noted. IMPRESSION: No acute findings. Electronically signed by: Lili Phan MD 01/18/2019 10:31 PM CDT Due to temporary technical issues with the PACS/Fluency reporting system, reports are being signed by the in house radiologist as a courtesy to ensure prompt reporting. The interpreting radiologist is f ully responsible for the content of the report.
--- NOTE | 2019-01-19 21:42 | EKG ---
Test Date: 2019-01-18 Test Time: 23:26:45 Automobile Sales Consultant: MEASUREMENT RESULTS: Intervals: Rate: 82 ID: [id number] QRSD: 128 QT: 414 QTc: 483 [place]: P: 66 ID: [id number] QRS: -64 T: 26 INTERPRETIVE STATEMENTS: Normal sinus rhythm Right bundle branch block Left anterior fascicular block Bifascicular block Possible Lateral infarct, age undetermined Cannot rule out Inferior infarct (masked by fascicular block?), age undetermined Abnormal ECG Compared to ECG 04/03/2018 23:08:43 Sinus arrhythmia no longer present Bifascicular block still present Myocardial infarct finding still present Electronically Signed On 01-19-19 21:38:49 CDT by Oscar Kasper
== END 2019-01-19 01:28 | disposition home or self-care (01) ==
LOC: ER 20:05
DX: K29.70 Gastritis, unspecified, without bleeding (principal); I10 Essential (primary) hypertension; Z79.82 Long term (current) use of aspirin; Z88.5 Allergy status to narcotic agent; Z95.2 Presence of prosthetic heart valve
CPT/HCPCS: 93005; 85025; 80048; 36415; 80076; 83690; 74177; 74018; Q9967; C9113; J2405; 96374; 96375; 99284

== ENCOUNTER 2019-05-14 20:39 | Inpatient (IN) | payer OTHER ==
[2019-05-14 21:03] LABS: Absolute Lymphocytes (CBC) 3.6 K/uL (0.7-4.9); Basophils % 0.6 % (0-1.3); Hematocrit 40.6 % (36.0-45.0); Protime INR 0.94
[2019-05-14 21:20] LABS: Albumin 3.8 g/dL (3.4-5.0); Bilirubin Direct 0.1 mg/dL (0-0.2); Bilirubin Total 0.4 mg/dL (0.2-1.0); Magnesium 1.9 mg/dL (1.8-2.4); Potassium 4.3 mmol/L (3.5-5.1); Protein, Total 8.6 g/dL (6.4-8.2); Troponin (Emerg Dept Use Only) 0.03 ng/mL (0.0-0.045)
[2019-05-14] MEDS ORDERED: NITROGLYCERIN 0.4 MG/TAB SL ONE ×2 (21:20→23:07)
[2019-05-14 21:33] LABS: Platelet Estimate DECR; Urine White Blood Cell Casts OK
[2019-05-14 21:34] LABS: Blood Morphology Comment NOT SEEN (NOT SEEN)
--- NOTE | 2019-05-14 22:20 | ER ---
Nurse's Notes [facility] Name: Radha Tran Age: 88 yrs Sex: Female : 1930 Arrival Date: 05/14/2019 Time: 20:40 Bed 23 Private MD: Diagnosis: Chest pain, unspecified Presentation: 05/14 20:46 Presenting complaint: Patient states: Onset of chest pain and SOB today. Transition of la1 care: patient was not received from another setting of care. Onset of symptoms was May 14, 2019. Risk Assessment: Do you want to hurt yourself or someone else? Patient reports no desire to harm self or others. Initial Sepsis Screen: Does the patient meet any 2 criteria? No. Patient's initial sepsis screen is negative. Does the patient have a suspected source of infection? No. Patient's initial sepsis screen is negative. Care prior to arrival: None. 20:46 Method Of Arrival: Ambulatory la1 20:46 Acuity: SANCHEZ 2 la1 Historical: - Allergies: 20:46 Codeine; la1 - Home Meds: 20:46 alendronate 70 mg Oral tab 1 tab once wkly for Post-Menopausal Osteoporosis [Active]; la1 aspirin 81 mg Oral TbEC 1 tab once daily [Active]; lisinopril 10 mg Oral tab once daily for Hypertension [Active]; Norvasc 5 mg Oral tab 1 tab once daily [Active]; - PMHx: 20:46 Hypertension; Osteoporosis; la1 - PSHx: 20:46 aortic valve replacement; la1 - Immunization history:: Adult Immunizations up to date. - Social history:: Smoking status: Patient/guardian denies using tobacco. - Ebola Screening: : No symptoms or risks identified at this time. Screenin:02 Abuse screen: Denies threats or abuse. Denies injuries from another. Nutritional mg2 screening: No deficits noted. Tuberculosis screening: No symptoms or risk factors identified. Fall Risk IV access (20 points). Assessment: 21:03 General: Appears in no apparent distress. comfortable, Behavior is calm, cooperative. mg2 Pain: Complains of pain in chest Pain does not radiate. Pain currently is 9 out of 10 on a pain scale. Quality of pain is described as burning, aching, Pain began 1 hour ago. Is intermittent. Neuro: Level of Consciousness is awake, alert, obeys commands, Oriented to person, place, time, situation. Cardiovascular: Heart tones S1 S2 present Capillary refill < 3 seconds Patient's skin is warm and dry. Respiratory: Airway is patent Trachea midline Respiratory effort is even, unlabored, Respiratory pattern is regular, symmetrical. Respiratory: Reports shortness of breath. Respiratory: Breath sounds are clear bilaterally. in right upper lobe, left upper lobe, right middle lobe, left lower lobe and right lower lobe. GI: No signs and/or symptoms were reported involving the gastrointestinal system. : No signs and/or symptoms were reported regarding the genitourinary system. EENT: No signs and/or symptoms were reported regarding the EENT system. Derm: Skin is intact, is healthy with good turgor, Skin is pink, warm \T\ dry. normal. Musculoskeletal: Circulation, motion, and sensation intact. Capillary refill < 3 seconds. 21:41 Reassessment: patient reported chest pain radiating to the left arm. provider informed mg2 and ordered meds. patient relieved after the administration. Vital Signs: 20:46 Weight 53.52 kg; Height 5 ft. 0 in. (152.40 cm); la1 21:01 BP 125 / 88; Pulse 105; Resp 18; Temp 97.7; Pulse Ox 100% on R/A; mg2 21:26 BP 140 / 79; Pulse 102; Resp 18; Pulse Ox 95% on R/A; mg2 21:39 BP 135 / 85; Pulse 103; Resp 18; Pulse Ox 97% on R/A; Pain 0/10; mg2 23:06 BP 141 / 101; Pulse 108; Resp 15; Pulse Ox 97% on R/A; rv 05/15 00:55 BP 136 / 101; Pulse 109; Resp 16; Pulse Ox 100% ; rv 05/14 20:46 Body Mass Index 23.05 (53.52 kg, 152.40 cm) la1 Vitals: 05/14 23:33 Cardiac Rhythm Assessment Sinus rhythm Other PVC, BIGEMINY. rv ED Course: 20:40 Patient arrived in ED. ds1 20:46 Arm band placed on right wrist. la1 20:47 Triage completed. la1 20:53 Del Sterling MD is Attending Physician. tw4 20:58 Hitesh Merchant RN is Primary Nurse. mg2 21:03 No provider procedures requiring assistance completed. Inserted saline lock: 20 gauge mg2 in right antecubital area, using aseptic technique. Blood collected. Patient maintains SpO2 saturation greater than 95% on room air. 21:05 Patient has correct armband on for positive identification. Placed in gown. Bed in low mg2 position. Call light in reach. Side rails up X2. monitor worker on. Pulse ox on. NIBP on. Door closed. Warm blanket given. 21:17 XRAY Chest (1 view) In Process Unspecified. EDNJ 22:19 Zack Fleming is Hospitalizing Provider. tw4 23:33 Inserted saline lock: 22 gauge in right forearm, using aseptic technique. rv 05/15 00:56 Patient admitted, IV remains in place. rv Administered Medications: 05/14 21:23 Drug: Nitroglycerin 0.4 mg Route: Sublingual; mg2 21:28 Follow up: Response: No adverse reaction; Marked relief of symptoms; Pain is decreased mg2 23:10 Drug: Nitroglycerin 0.4 mg Route: Sublingual; rv 05/15 00:55 Follow up: Response: No adverse reaction rv Outcome: 05/14 22:19 Decision to Hospitalize by Provider. tw4 05/15 00:56 Admitted to Med/surg accompanied by nurse, via wheelchair, room 201, with chart, Report rv called to ayah pompa Condition: stable Instructed on the need for admit. 01:02 Patient left the ED. rv Signatures: Dispatcher [employer] [facility] Cedillo, Migdalia ds1 Eliceo Saba RN RN la1 Del Sterling MD MD tw4 Hitesh Merchant RN RN mg2 Surjit Desai RN RN rv
--- NOTE | 2019-05-14 22:21 | EDPHYS ---
Physician Documentation [facility] Name: Radha Tran Age: 88 yrs Sex: Female : 1930 Arrival Date: 05/14/2019 Time: 20:40 Bed 23 Private MD: ED Physician Del Sterling HPI: 05/15 05:43 This 88 yrs old Female presents to ER via Ambulatory with complaints of Chest tw4 Pain, Shortness Of Breath. 05:43 The patient or guardian reports chest pain that is located primarily in the anterior tw4 chest wall. Onset: today. The pain does not radiate. Associated signs and symptoms: Pertinent positives: shortness of breath. The chest pain is described as dull, a heaviness. Duration: The patient or guardian reports a single episode, that is still ongoing. Modifying factors: The symptoms are alleviated by nothing. the symptoms are aggravated by nothing. Severity of pain: At its worst the pain was mild in the emergency department the pain is unchanged. The patient has not experienced similar symptoms in the past. Historical: - Allergies: 05/14 20:46 Codeine; la1 - Home Meds: 20:46 alendronate 70 mg Oral tab 1 tab once wkly for Post-Menopausal Osteoporosis [Active]; la1 aspirin 81 mg Oral TbEC 1 tab once daily [Active]; lisinopril 10 mg Oral tab once daily for Hypertension [Active]; Norvasc 5 mg Oral tab 1 tab once daily [Active]; - PMHx: 20:46 Hypertension; Osteoporosis; la1 - PSHx: 20:46 aortic valve replacement; la1 - Immunization history:: Adult Immunizations up to date. - Social history:: Smoking status: Patient/guardian denies using tobacco. - Ebola Screening: : No symptoms or risks identified at this time. ROS: 05/15 05:43 Constitutional: Negative for fever, chills, and weight loss, Eyes: Negative for injury, tw4 pain, redness, and discharge, Respiratory: Negative for shortness of breath, cough, wheezing, and pleuritic chest pain, Abdomen/GI: Negative for abdominal pain, nausea, vomiting, diarrhea, and constipation, Back: Negative for injury and pain, MS/Extremity: Negative for injury and deformity, Skin: Negative for injury, rash, and discoloration, Neuro: Negative for headache, weakness, numbness, tingling, and seizure. Cardiovascular: Positive for chest pain, Negative for edema, orthopnea, palpitations, paroxysmal nocturnal dyspnea. Exam: 05:43 Constitutional: This is a well developed, well nourished patient who is awake, alert, tw4 and in no acute distress. Head/Face: Normocephalic, atraumatic. Chest/axilla: Normal chest wall appearance and motion. Nontender with no deformity. No lesions are appreciated. Cardiovascular: Regular rate and rhythm with a normal S1 and S2. No gallops, murmurs, or rubs. Normal PMI, no JVD. No pulse deficits. Respiratory: Lungs have equal breath sounds bilaterally, clear to auscultation and percussion. No rales, rhonchi or wheezes noted. No increased work of breathing, no retractions or nasal flaring. Abdomen/GI: Soft, non-tender, with normal bowel sounds. No distension or tympany. No guarding or rebound. No evidence of tenderness throughout. Back: No spinal tenderness. No costovertebral tenderness. Full range of motion. MS/ Extremity: Pulses equal, no cyanosis. Neurovascular intact. Full, normal range of motion. Neuro: Awake and alert, GCS 15, oriented to person, place, time, and situation. Cranial nerves II-XII grossly intact. Motor strength 5/5 in all extremities. Sensory grossly intact. Cerebellar exam normal. Normal gait. Vital Signs: 05/14 20:46 Weight 53.52 kg; Height 5 ft. 0 in. (152.40 cm); la1 21:01 BP 125 / 88; Pulse 105; Resp 18; Temp 97.7; Pulse Ox 100% on R/A; mg2 21:26 BP 140 / 79; Pulse 102; Resp 18; Pulse Ox 95% on R/A; mg2 21:39 BP 135 / 85; Pulse 103; Resp 18; Pulse Ox 97% on R/A; Pain 0/10; mg2 23:06 BP 141 / 101; Pulse 108; Resp 15; Pulse Ox 97% on R/A; rv 05/15 00:55 BP 136 / 101; Pulse 109; Resp 16; Pulse Ox 100% ; rv 05/14 20:46 Body Mass Index 23.05 (53.52 kg, 152.40 cm) la1 MDM: 05/14 21:05 Patient medically screened. tw4 05/15 05:43 Differential diagnosis: acute myocardial infarction, acute pericarditis, pulmonary tw4 embolus, thoracic aortic disection. HEART Score: History: Moderately Suspicious (1), ECG: Non specific repolarization disturbance / LBTB / PM (1), Age: > or = 65 years (2), Risk Factors: 1 or 2 risk factors (1), Troponin: < or = 1 x Normal Limit (0), Total Score = 4. Data reviewed: vital signs, nurses notes. Data interpreted: Pulse oximetry: Interpretation: normal. Test interpretation: by ED physician or midlevel provider: ECG. Counseling: I had a detailed discussion with the patient and/or guardian regarding: the historical points, exam findings, and any diagnostic results supporting the discharge/admit diagnosis. Physician consultation: Zack Fleming regarding admission, to the telemetry unit. and will see patient in ED. 05/14 20:43 Order name: Basic Metabolic Panel; Complete Time: 21:25 [facility] 05/14 21:25 Interpretation: CL 108; GLUC 112; BUN 24; GFR 46. tw4 05/14 20:43 Order name: CBC with Diff; Complete Time: 22:16 mg2 05/14 22:17 Interpretation: Normal except: PLT 151; LYM% 50.0; ERIC% 38.4. 05/14 20:43 Order name: LFT's; Complete Time: 21:25 mg2 05/14 22:17 Interpretation: Normal except: TP 8.6; GLOB 4.8; A/G 0.8. 05/14 20:43 Order name: Magnesium; Complete Time: 22:16 mg2 05/14 22:17 Interpretation: Within normal limits: MG 1.9. tw4 05/14 20:43 Order name: NT PRO-BNP; Complete Time: 22:16 mg2 05/14 22:17 Interpretation: Normal except: NT PRO-BNP 844. 05/14 20:43 Order name: PT-INR; Complete Time: 21:25 mg2 05/14 20:43 Order name: Troponin (emerg Dept Use Only); Complete Time: 21:25 mg2 05/14 20:43 Order name: XRAY Chest (1 view) mg2 05/14 20:43 Order name: EKG; Complete Time: 20:44 mg2 05/14 20:43 Order name: Cardiac monitoring; Complete Time: : mg2 05/14 20:43 Order name: EKG - Nurse/Tech; Complete Time: : mg2 05/14 20:43 Order name: IV Saline Lock; Complete Time: : mg2 05/14 21:35 Order name: CBC Smear Scan; Complete Time: 22:16 EDNY 05/14 20:43 Order name: Labs collected and sent; Complete Time: : mg2 05/14 20:43 Order name: O2 Per Protocol; Complete Time: : mg2 05/14 20:43 Order name: O2 Sat Monitoring; Complete Time: : mg2 EC:24 Rate is 115 beats/min. Rhythm is regular, Sinus tachycardia with Occasional PVCs. QRS tw4 [place] is Normal. OR interval is normal. QT interval is normal. No Q waves. T waves are Normal. No ST changes noted. Clinical impression: Sinus tachycardia. Interpreted by me. Reviewed by me. Administered Medications: 05/14 21:23 Drug: Nitroglycerin 0.4 mg Route: Sublingual; mg2 21:28 Follow up: Response: No adverse reaction; Marked relief of symptoms; Pain is decreased mg2 23:10 Drug: Nitroglycerin 0.4 mg Route: Sublingual; rv 05/15 00:55 Follow up: Response: No adverse reaction rv Disposition: 05/14/19 22:19 Hospitalization ordered by Zack Fleming for Observation. Preliminary diagnosis is Chest pain, unspecified. - Bed requested for Telemetry/MedSurg (observation). - Status is Observation. rv - Condition is Stable. - Problem is new. - Symptoms have improved. UTI on Admission? No Signatures: Dispatcher [employer] EDNY Eliceo Saba RN RN la1 Mer Amaya, RN RN cg Del Sterling MD MD tw4 Hitesh Merchant RN RN mg2 Surjit Desai RN RN rv Corrections: (The following items were deleted from the chart) 00:39 05/14 22:19 Hospitalization Ordered by Zack Fleming for Observation. Preliminary cg diagnosis is Chest pain, unspecified. Bed requested for Telemetry/MedSurg (observation). Status is Observation. Condition is Stable. Problem is new. Symptoms have improved. UTI on Admission? No. tw4 05/15 01:02 00:39 05/14/2019 22:19 Hospitalization Ordered by Zack Fleming for Observation. rv Preliminary diagnosis is Chest pain, unspecified. Bed requested for Telemetry/MedSurg (observation). Status is Observation. Condition is Stable. Problem is new. Symptoms have improved. UTI on Admission? No. cg
--- NOTE | 2019-05-15 00:14 | P.HP ---
Certification for Inpatient Patient admitted to: Observation With expected LOS: <2 Midnights Practitioner: I am a practitioner with admitting privileges, knowledge of patient current condition, hospital course, and medical plan of care. Services: Services provided to patient in accordance with Admission requirements found in Title 42 Section 412.3 of the Code of Federal Regulations Patient History Date of Service: 05/15/19 Reason for admission: Chest pain History of Present Illness: 88-year-old woman diagnosed with mild diffuse coronary disease presented to the emergency department complaining of chest pain of onset yesterday in the evening. Chest pain occurred at rest, rated at 9/10 in intensity, nonradiating , associated palpitation, no diaphoresis. Patient did not try anything for pain at home. She stated the pain did not respond to nitroglycerin given in the ED. She denies shortness of breath. In the ED, initial troponin is negative, EKG demonstrates right bundle branch block and nondiagnostic for ischemia, also noted frequent PVCs and bigeminy which is a chronic issue for her. Chest x-ray reported no acute disease. Patient is placed under observation for chest pain rule out. Allergies codeine Adverse Reaction (Verified 08/31/14 14:47) Nausea/Vomiting Home Medications: Alendronate Sodium [Fosamax] 70 mg PO EVERY 7TH DAY 08/09/16 Amlodipine [Norvasc*] 10 mg PO DAILY 08/09/16 Lisinopril 20 mg PO DAILY 08/09/16 Aspirin 81 mg PO DAILY 04/04/18 - Past Medical/Surgical History Diabetic: No -: HTN -: osteoporosis -: parathyroid sx -: aortic valve replacement -: csection -: cataract surgery bilateral - Family History Mother -: Heart disease, Hypertension Father -: Kidney disease Brother -: Kidney disease, Other (see notes) Notes: schizophrenic - Social History Smoking Status: Never smoker Alcohol use: No CD- Drugs: No Caffeine use: Yes Review of Systems Other: General: No fever, no malaise, no unintentional weight loss. Eyes: No eye discharge, Respiratory: No cough, no shortness of breath. GI: No abdominal pain, no nausea no vomit, no constipation, no diarrhea. Genitourinary: No dysuria, no urinary frequency, no incontinence, no hematuria. Musculoskeletal: No joint pains, or joint swelling, no gait instability. Neurology: No headache, no asymmetric, weakness, no problem with swallowing. Except as documented, all other systems reviewed and negative. Physical Examination - Physical Exam General: Alert, In no apparent distress, Oriented x3 HEENT: Atraumatic, Normocephalic, PERRLA, EOMI Neck: Supple, 2+ carotid pulse no bruit, JVD not distended, No Thyromegaly Respiratory: Clear to auscultation bilaterally, Normal air movement Cardiovascular: No edema, Normal pulses, Normal S1 S2, No murmurs, Irregular heart rate/rhythm Capillary refill: <2 Seconds Gastrointestinal: Normal bowel sounds, Soft and benign, Non-distended, No tenderness Musculoskeletal: No clubbing, No erythema, No tenderness Integumentary: No rashes, No erythema Neurological: Normal strength at 5/5 x4 extr, Cranial nerves 3-12 intact, Normal affect - Studies Laboratory Data (last 24 hrs) 05/14/19 20:50: PT 11.1, INR 0.94 05/14/19 20:50: WBC 7.2, Hgb 13.5, Hct 40.6, Plt Count 151 L 05/14/19 20:50: Sodium 143, Potassium 4.3, BUN 24 H, Creatinine 1.13, Glucose 112 H, Magnesium 1.9, Total Bilirubin 0.4, AST 20, ALT 19, Alkaline Phosphatase 47 Assessment and Plan - Problems (Diagnosis) (1) Chest pain Current Visit: Yes Status: Acute (2) Premature ventricular beats Current Visit: Yes Status: Chronic (3) CAD (coronary artery disease) Current Visit: Yes Status: Chronic (4) Aortic valve replaced Current Visit: Yes Status: Chronic (5) Hypertension Onset Date: 08/12/16 Current Visit: No Status: Chronic Qualifiers: Hypertension type: essential hypertension Qualified Code(s): I10 - Essential (primary) hypertension - Plan Place under observation Continue to trend troponin Metoprolol 25 mg b.i.d. Aspirin, Lipitor. Check lipid profile. Check TSH and free T4 Blood pressure control-metoprolol, Lisinopril and amlodipine. Check echocardiogram Cardiology consult. Discharge Plan: Home - Advance Directives Does patient have a Living Will: No Does patient have a Durable POA for Healthcare: Yes - Code Status/Comfort Care Code Status: Full Code
[2019-05-15] MEDS ORDERED: NITROGLYCERIN 0.4 MG/TAB SL PRN (00:22)
[2019-05-15 06:22] LABS: Thyroid Stimulating Hormone 2.88 uIU/mL (0.360-3.740)
[2019-05-15 06:38] LABS: Troponin I 5.86 ng/mL (0.0-0.045)
--- NOTE | 2019-05-15 06:55 | P.PN ---
Date of Service: 05/15/19 troponin elevated to 5.86. Underlying history of CAD presenting with chest pain. Diagnosis: NSTEMI. Start full dose lovenox and plavix. Cardiology consult.
[2019-05-15] MEDS ORDERED: PNEUMOCOCCAL VACCINE 0.5 ML IMVAC ONE (08:00)
[2019-05-15] MEDS: ENOXAPARIN 60 MG/0.6 ML SQ SCH ×2 (08:21→10:37)
[2019-05-15] MEDS: METOPROLOL TAR 50 MG TAB PO SCH ×2 (08:21→22:42)
[2019-05-15] MEDS: LISINOPRIL 20 MG TAB PO SCH (08:21)
[2019-05-15] MEDS: NITROGLYCERIN 1 GM PKT TD PRN (08:21)
[2019-05-15] MEDS: ASPIRIN EC 81 MG TAB PO SCH (08:21)
[2019-05-15] MEDS: CLOPIDOGREL 75 MG TABLET PO SCH (08:21)
--- NOTE | 2019-05-15 08:49 | RAD REPORT ---
EXAM DESCRIPTION: RAD - Chest Single View - 05/14/2019 9:15 pm CLINICAL HISTORY: Chest pain, shortness of breath COMPARISON: March 2018 TECHNIQUE: AP portable chest image was obtained 8 hours . FINDINGS: Fibrotic lung changes are present throughout both lung [place]. No focal mass or infiltrate seen. Long pattern is less prominent than seen on the comparison. No significant interstitial edema or infiltrate seen. No overall failure or volume overload. Heart and vasculature are normal. No measu rable pleural effusion and no pneumothorax. No acute bony abnormality seen. No acute aortic findings suspected. IMPRESSION: Chronic interstitial lung disease is evident. No focal infiltrate seen. No failure or volume overload identified.
[2019-05-15] MEDS ORDERED: ENOXAPARIN 30 MG/0.3 ML SQ SCH (09:00)
--- NOTE | 2019-05-15 12:06 | PN ---
Date of Progress Note: 05/15/2019 Code Status: Full. Patient is seen and examined. Chart reviewed and case discussed with RN and Dr. Renee. Family at t he bedside. Treatment plan, explained, all questions answered. The patient is still having some manuel st tightness. Physical Examination: Vital Signs: Temperature 98.4, heart rate 90, blood pressure 92/57, respirations 17, O2 at 97% on ro om air. General: Awake, alert, oriented x3, in some mild distress. Elderly female. CV: S1, S2. Regular rate and rhythm. Peripheral pulses are present. The patient does have a murmu r. Respiratory: Clear to auscultation bilaterally. No wheezing or stridor. Gastrointestinal: Abdomen is soft, nontender, nondistended. Positive bowel sounds. Extremities: No clubbing, cyanosis, or edema. Neuro: Cranial nerves 2-12 intact grossly. No focal neurological deficits. Speech is normal. Skin: No rashes. Normal skin turgor. Laboratory Data: Initial troponin 0.03, 5.86 and then 7.94. Lipid panel, triglycerides 89, choleste rol 201, LDL 114, HDL 69, TSH 2.88. Assessment And Plan: An 88-year-old female with: 1.NSTEMI. We will continue with medical management. Plan for cardiac catheterization. The patient is on therapeutic dose of Lovenox. Appreciate Dr. Renee' input. We will start on nitroglycerin pa bright for chest pain and morphine p.r.n. if still asymptomatic, we will start on nitroglycerin drip an d we will transfer to ICU. 2.PVC. 3.Coronary artery disease [place] artery and [place] heart with angina, currently on Plavix. 4.Status post bovine aortic valve. 5.Essential hypertension, stable. We will resume home medications. Plan: Transfer to ICU. Plan for cardiac catheterization. /MODL Voice ID: [id number] Report ID: [id number]
--- NOTE | 2019-05-15 13:50 | CON ---
Identification: An 88-year-old woman. Chief Complaint: Chest pain. History Of Present Illness: Ms. Tran has a history of aortic valve surgery. She did not have cor onary heart disease at the time. She had a transcutaneous aortic valve replacement in 2014. A coupl e years later, we did a cardiac cath and found that her coronaries were fine. There were some techni ck difficulties trying to do the heart cath because of the transcatheter valve caged, configuration made accessing the left main ostium quite difficult. The patient has not had any intervening chest p ain since her valve replacement in the past 2 years when her last cardiac cath was done. Allergies: SHE IS ALLERGIC TO CODEINE. Home Medications: Amlodipine, lisinopril, alendronate, and aspirin. She does not have diabetes or d yslipidemia. Social History: She uses no tobacco, no illegal drugs. Physical Examination: Measurements: 5 feet tall, 118 pounds. HEENT: Normal. Lungs: Clear. Cardiac: Within normal limits. No murmur. Abdomen: Soft. Extremities: Unremarkable. Normal pulses. Laboratory Data: Her creatinine is 1.13. Her total cholesterol is 201. Her LDL cholesterol 114. Assessment And Plan: I will recommend to do a cardiac cath on Friday with the expectation that we wi ll have some challenges trying to get to the left main coronary ostium. Hopefully, we could see some thing that we can help. As of now, her EKGs do not show anything significant to help us localize whe re this might be. The patient was not under any particular distress. I think the most likely thing that was embolus from the valve. She may need dual anti-platelet therapy or Coumadin instead of aspi rin alone. CRISTINE/RICHARDL Voice ID: [id number] Report ID: [id number]
--- NOTE | 2019-05-15 15:44 | EKG ---
Test Date: 2019-05-14 Test Time: 20:49:50 Emergency Medical Services Coordinator: JOSIAHT MEASUREMENT RESULTS: Intervals: Rate: 115 [place]: 144 QRSD: 122 QT: 360 QTc: 498 [place]: P: 59 [place]: 144 QRS: -67 T: 60 INTERPRETIVE STATEMENTS: Sinus tachycardia with frequent and consecutive premature ventricular complexes Right bundle branch block Left anterior fascicular block Bifascicular block Possible Inferior infarct, age undetermined Abnormal ECG Compared to ECG 01/18/2019 23:26:45 Ventricular premature complex(es) now present Sinus rhythm no longer present Bifascicular block still present Myocardial infarct finding still present Electronically Signed On 05-15-19 15:43:44 CDT by Lance Renee
[2019-05-16 06:36] LABS: Absolute Lymphocytes (CBC) 2.1 K/uL (0.7-4.9); Basophils % 0.8 % (0-1.3); Hematocrit 35.4 % (36.0-45.0); Lymphocytes % 39.6 % (15.3-44.8); MPV 10.8 fL (7.6-11.3); RBC Red Blood Cell Count 3.66 M/uL (3.86-4.86)
[2019-05-16 06:39] LABS: Bilirubin Total 0.5 mg/dL (0.2-1.0); Protein, Total 6.8 g/dL (6.4-8.2)
[2019-05-16] MEDS: METOPROLOL TAR 50 MG TAB PO SCH ×2 (09:19→20:57)
[2019-05-16] MEDS: CLOPIDOGREL 75 MG TABLET PO SCH (09:19)
[2019-05-16] MEDS: ASPIRIN EC 81 MG TAB PO SCH (09:19)
[2019-05-16] MEDS: ENOXAPARIN 60 MG/0.6 ML SQ SCH (09:21)
--- NOTE | 2019-05-16 10:39 | EKG ---
Test Date: 2019-05-16 Test Time: 08:04:51 Senior Talent Acquisition Specialist: KARELY, MEASUREMENT RESULTS: Intervals: Rate: 79 [place]: 136 QRSD: 116 QT: 478 QTc: 548 [place]: P: 0 IN: 136 QRS: -67 T: 209 INTERPRETIVE STATEMENTS: Sinus rhythm with sinus arrhythmia with occasional premature ventricular complexes Incomplete right bundle branch block Left anterior fascicular block ST & T wave abnormality, consider anterior ischemia Prolonged QT Abnormal ECG Compared to ECG 05/15/2019 18:07:29 ST (T wave) deviation now present Possible ischemia still present Electronically Signed On 05-16-19 10:38:45 CDT by Lance Renee
--- NOTE | 2019-05-16 10:42 | EKG ---
Test Date: 2019-05-15 Test Time: 18:07:29 [place] [employer] Direction Specialist: KARELY, MEASUREMENT RESULTS: Intervals: Rate: 79 [place]: 132 QRSD: 118 QT: 484 QTc: 554 [place]: P: 10 [place]: 132 QRS: -67 T: 169 INTERPRETIVE STATEMENTS: Sinus rhythm with frequent premature ventricular complexes Incomplete right bundle branch block Left anterior fascicular block Inferior infarct, age undetermined ST & Marked T wave abnormality, consider anterolateral ischemia Prolonged QT Abnormal ECG Compared to ECG 05/14/2019 20:49:50 Incomplete right bundle-branch block now present T-wave abnormality now present Sinus tachycardia no longer present Right bundle-branch block no longer present Electronically Signed On 05-16-19 10:41:36 CDT by Lance Renee
[2019-05-16] MEDS: LISINOPRIL 20 MG TAB PO SCH (12:05)
--- NOTE | 2019-05-16 13:46 | PN ---
Date of Progress Note: 05/16/2019 Subjective: Patient seen and examined. Chart reviewed and case discussed with RN. Patient had an u neventful night. No further chest pain. Doing well. Medications: List reviewed. Physical Examination: Vital Signs: Temperature 98.8, heart rate 80, blood pressure 99/80, respirations 23, O2 98% on room air. General: Awake, alert, oriented x3, not in any acute distress, elderly female. CV: S1, S2. Regular rate and rhythm. Peripheral pulses present. Respiratory: Moving air well bilaterally. No wheezing or stridor. No use of accessory muscles. Gastrointestinal: Abdomen is soft, nontender, nondistended. Positive bowel sounds. Extremities: No clubbing, cyanosis, or edema. Neurologic: Nonfocal. Laboratory Data: Sodium 143, potassium 4, chloride 113, CO2 22, BUN 18, creatinine 0.74, glucose 84, calcium 9. Troponin 5.86, 7.94, 10.8. WBC 5.2, H and H 11.9 and 35.4, platelets 128. Assessment And Plan: 88-year-old female with; 1.Awn-wq-rmpmaymvh myocardial infarction. Continue with medical management. Continue chest pain gu idelines. Continue Lovenox renally dosed. Plan is for cardiac catheterization. Appreciate Dr. Oropeza is' input. 2.Coronary artery disease [place] heart with angina, currently on Plavix. 3.Status post bovine aortic valve. 4.Essential hypertension, stable. 5.PVCs. Plan as above. /RUSTAM Voice ID: [id number] Report ID: [id number]
--- NOTE | 2019-05-16 15:43 | PN ---
Ms. Tran feels fine. Her EKGs and enzymes clearly indicate CAD. It looks like the LAD stenosis i s probably present in attempt a cardiac cath, possibly a stent realizing it is difficult with the cag e. Transcatheter aortic valve present. We will take a femoral approach. We will be ready to attemp t a left radial approach if that would perhaps be helpful. I am expecting to find an LAD stenosis. The patient seems to understand the procedure, its potential benefits, indications, risks, and agrees to proceed. CRISTINE/RUSTAM Voice ID: [id number] Report ID: [id number]
[2019-05-16] MEDS: PANTOPRAZOLE 40MG TABLET PO SCH (17:07)
[2019-05-16] MEDS: NITROGLYCERIN 1 GM PKT TD PRN (18:26)
[2019-05-16] MEDS ORDERED: LORAZEPAM 0.5 MG TABLET PO ONE (20:07)
[2019-05-17 05:44] LABS: Absolute Lymphocytes (CBC) 2.7 K/uL (0.7-4.9); Basophils % 0.7 % (0-1.3); Hematocrit 37.6 % (36.0-45.0); Lymphocytes % 43.1 % (15.3-44.8); MPV 10.7 fL (7.6-11.3); RBC Red Blood Cell Count 3.86 M/uL (3.86-4.86)
[2019-05-17 05:56] LABS: Albumin 3.4 g/dL (3.4-5.0); Bilirubin Total 0.7 mg/dL (0.2-1.0); Potassium 4.8 mmol/L (3.5-5.1); Protein, Total 7.5 g/dL (6.4-8.2)
[2019-05-17] MEDS ORDERED: NA CHLORIDE 0.9% 1,000 ML IV SCH (06:00)
--- NOTE | 2019-05-17 07:47 | EKG ---
Test Date: 2019-05-16 Test Time: 18:20:16 Human Resources Office Assistant: LEBRON MEASUREMENT RESULTS: Intervals: Rate: 87 [place]: 132 QRSD: 116 QT: 434 QTc: 522 [place]: P: 18 [place]: 132 QRS: -64 T: 189 INTERPRETIVE STATEMENTS: Sinus rhythm with frequent premature ventricular complexes Incomplete right bundle branch block Left anterior fascicular block cannot rule out Inferior infarct, age undetermined ST & T wave abnormality, consider anterolateral ischemia Prolonged QT Abnormal ECG Compared to ECG 05/16/2019 08:04:51 borderline Myocardial infarct finding now present Sinus arrhythmia no longer present ST (T wave) deviation still present Possible ischemia still present Electronically Signed On 05-17-19 07:46:47 CDT by Lance Renee
[2019-05-17] MEDS: CLOPIDOGREL 75 MG TABLET PO SCH (08:13)
[2019-05-17] MEDS: ASPIRIN EC 81 MG TAB PO SCH (08:13)
[2019-05-17] MEDS: LISINOPRIL 20 MG TAB PO SCH (08:13)
[2019-05-17] MEDS: METOPROLOL TAR 50 MG TAB PO SCH ×2 (08:14→20:15)
[2019-05-17] MEDS: PANTOPRAZOLE 40MG TABLET PO SCH (08:15)
--- NOTE | 2019-05-17 09:37 | RAD REPORT ---
EXAM DESCRIPTION: Single view of the chest CLINICAL HISTORY: SOB COMPARISON: None. FINDINGS: Single frontal view of the chest. Cardiomediastinal silhouette: Atherosclerotic calcification thoracic aorta. Heart is not enlarged. Lungs: No consolidation, pneumothorax, or pleural effusion. Bones: Degenerative change of the shoulders and spine. Upper abdomen: No abnormality identified. IMPRESSION: 1. No acute pneumonic process identified. Electronically signed by: Kt Montgomery 05/17/2019 12:50 AM CDT Due to temporary technical issues with the PACS/Fluency reporting system, reports are being signed by the in house radiologist as a courtesy to ensure prompt reporting. The interpreting radiologist is f ully responsible for the content of the report.
[2019-05-17] MEDS ORDERED: HEPA 1000U/500MLS 2,000 UNIT/1,000 ML BAG IV ONE (13:23)
[2019-05-17] MEDS ORDERED: MIDAZOLAM HCL 2 MG/2 ML INJ ONE (13:36)
[2019-05-17] MEDS ORDERED: NA CHLORIDE 0.9% 50 ML ONE (13:36)
[2019-05-17] MEDS ORDERED: ATROPINE SULF 1 MG/10 ML SYR IV ONE (13:36)
[2019-05-17] MEDS ORDERED: FENTANYL CITR 100 MCG/2 ML ONE (13:36)
[2019-05-17] MEDS ORDERED: METOPROLOL TARTRATE 5 MG/5 ML INJ IV ONE (14:27)
[2019-05-17] MEDS ORDERED: PRASUGREL (EFFIENT) 10 MG TAB ONE (14:37)
--- NOTE | 2019-05-17 15:09 | ECHO ---
HEIGHT: 5 ft 0 in WEIGHT: 117 lb 11.2 oz DATE OF STUDY: 05/17/[address]: marcela solomon 2-DIMENSIONAL: YES M.MODE: YES DOPPLER: YES COLOR FLOW: YES TDS: NO PORTABLE: NO DEFINITY: NO BUBBLE STUDY: NO DIAGNOSIS: CHEST PAIN CARDIAC HISTORY: CATHERIZATION: YES SURGERY: YES PROSTHETIC VALVE: YES PACEMAKER: NO MEASUREMENTS (cm) DIASTOLIC (NORMALS) SYSTOLIC (NORMALS) IVSd 0.9 (0.6-1.2) LA Diam 3.5 (1.9-4.0) LVEF 66% LVIDd 4.8 (3.5-5.7) LVIDs 3.0 (2.0-3.5) %FS 36% LVPWd 1.0 (0.6-1.2) Ao Diam 2.0 (2.0-3.7) 2 DIMENSIONAL ASSESSMENT: RIGHT ATRIUM: NORMAL LEFT ATRIUM: NORMAL RIGHT VENTRICLE: NORMAL LEFT VENTRICLE: NORMAL TRICUSPID VALVE: NORMAL MITRAL VALVE: NORMAL PULMONIC VALVE: NORMAL AORTIC VALVE: PROSTHETIC PERICARDIAL EFFUSION: NONE AORTIC ROOT: NORMAL LEFT VENTRICULAR WALL MOTION: ANTERIOR, SEPTAL HYPOKINESIS. DOPPLER/COLOR FLOW: MILD MITRAL AND TRICUSPID REGURGITATION. NORMAL RIGHT VENTRICULAR SYSTOLIC PRESSURE. NO AORTIC STENOSIS OR AORTIC REGURGITATION. COMMENTS: NORMAL LEFT VENTRICULAR EJECTION FRACTION WITH WALL MOTION ABNORMALITY. BIOPROSTHETIC AORTIC VALVE (TRANS CATHETER VALVE). NO AORTIC STENOSIS OR AORTIC REGURGITATION. TECHNOLOGIST: ANA MARIA MARCUM
[2019-05-17] MEDS ORDERED: NITROGLYCERIN 0.4 MG/TAB SL PRN (15:43)
[2019-05-17] MEDS ORDERED: ACETAMINOPHEN 325 MG TABLET PO PRN (15:43)
[2019-05-17] MEDS: NA CHLORIDE 0.9% 1,000 ML IV SCH ×2 (16:00→23:26)
[2019-05-17] MEDS: NITROGLYCERIN 1 GM PKT TD PRN (16:46)
[2019-05-17] MEDS ORDERED: ONDANSETRON 4 MG/2 ML VIAL IV PRN (17:11)
--- NOTE | 2019-05-17 19:50 | OP ---
Surgeon: Lance Renee MD Age: 88-year-old woman. Chief Complaint: Chest pain. Procedures: Left heart catheterization, coronary angiography, and percutaneous coronary intervention of mid left anterior descending artery. At the end of the procedure, we lost a side branch which was either a large diagonal or potentially t he LAD itself, but a very large septal was saved. We could not cross the stenosis into the large shaggy gonal and say that no opportunity for a double balloon or 2-wire technique. No measurement of left v entricular pressures was done because she has a prosthetic aortic valve, a bioprosthetic transcathete r valve. Procedure In Detail: The patient was brought to the cardiac laborer landscape in a fasting state, sedated wit h Versed and fentanyl, prepared and draped in usual sterile fashion. Right femoral artery was used. We used lidocaine to anesthetize the skin and tissues around the artery, entered it with an 18-gauge needle, cannulated it with a 4-[place] sheath. We used a JL4 and 3DRC to angiogram right and left co ronaries. We then switched to a 6-[place]. We used a 6-[place] JL4 guide. We were able to cannulate the left main through the stent struts and were able to perform the angioplasty adequately. We used a [place] wire. We gave her Angiomax, documented her ACT greater than 400 seconds, and crossed the le annie with the wire, unable to cross it into either large diagonal or small diagonal or LAD, but we co uld cross into the large septal. We placed a stent, which gave us excellent flow. We jailed the sub totally occluded vessel. No flow in it. The patient had minimal symptoms, hemodynamically stable, s o we decided to let it be, looked like an impossible vessel to try and open up no matter what was don e. At the end of the procedure, catheters were withdrawn. There was no dislodgement of the valve. Final pictures were taken and she will be s ent to ICU postop. CRISTINE/RUSTAM Voice ID: [id number] Report ID: [id number]
[2019-05-17] MEDS ORDERED: ALPRAZOLAM 0.25 MG TABLET PO PRN (20:10)
[2019-05-17] MEDS: ATORVASTATIN 80 MG TAB PO SCH (20:15)
--- NOTE | 2019-05-17 20:29 | HP ---
Date of Admission: 05/15/2019 History Of Present Illness: An 88-year-old female who was admitted by the hospitalist 2 days ago for acute non-Q-wave myocardial infarction when she presented with chest pain. Past Medical History: As per admit note. Social History: As per admit note. Family History: As per admit note. Medications: As per admit note. Allergies: PER ADMIT NOTE. Physical Examination: General: The patient had subendocardial myocardial infarction, admitted to the ICU. Vital Signs: Today, blood pressure 112/63, pulse 72. Patient is afebrile. Room air pulse oximetry more than 90%. Heart: Regular rate and rhythm. Chest: Clear to auscultation. Abdomen: Soft, benign. Bowel sounds are active. Extremities: No edema. No cyanosis. Peripheral pulses are felt. Neurological: Grossly intact. Laboratory Data: CBC today noted. Also her chemistry, chloride 110, BUN 18, creatinine 1.02, AST 53 , alkaline phosphatase 44. Assessment/plan: Subendocardial myocardial infarction. Patient has been treated with anticoagulatio n, close monitoring and nitroglycerin p.r.n. chest pain. Cardiology has seen the patient and she is going to have catheterization today. We will follow up Cardiology recommendations. We will continue the patient on her home medicines for chronic medical illnesses. Look orders for details. MFS/MODL Voice ID: [id number]
[2019-05-18 05:27] LABS: Absolute Lymphocytes (CBC) 1.7 K/uL (0.7-4.9); Basophils % 0.4 % (0-1.3); Hematocrit 34.2 % (36.0-45.0); Lymphocytes % 24.1 % (15.3-44.8); MPV 10.2 fL (7.6-11.3); RBC Red Blood Cell Count 3.48 M/uL (3.86-4.86)
[2019-05-18] MEDS: NA CHLORIDE 0.9% 1,000 ML IV SCH ×2 (06:18→20:19)
[2019-05-18 06:30] VITALS: BMI 23.6
[2019-05-18] MEDS: PANTOPRAZOLE 40MG TABLET PO SCH (07:48)
[2019-05-18] MEDS: ASPIRIN EC 81 MG TAB PO SCH (09:23)
[2019-05-18] MEDS: CLOPIDOGREL 75 MG TABLET PO SCH (09:23)
[2019-05-18] MEDS: LISINOPRIL 20 MG TAB PO SCH (09:23)
[2019-05-18] MEDS: METOPROLOL TAR 50 MG TAB PO SCH ×2 (09:24→20:20)
--- NOTE | 2019-05-18 10:18 | PN ---
Date of Progress Note: 05/18/2019 Mrs. Tran was admitted with non-ST elevation myocardial infarction on 05/15/2019. Dr. Renee perf ormed the left heart catheterization yesterday with an LAD stent. Echocardiogram showed normal eject ion fraction and normal aortic valve replacement status. Overnight, she had no chest pain, no teleme try changes. Her right groin is intact without any hematoma. Her examination is within normal limit s. She will go home today on her home medications plus Plavix 75 mg daily, Lipitor 80 mg daily. She will continue her home medicine otherwise. She will see us in the office in 2 weeks and go home todavid DOOLEY/RUSTAM Voice ID: [id number] Report ID: [id number]
--- NOTE | 2019-05-18 11:20 | EKG ---
Test Date: 2019-05-18 Test Time: 07:52:54 Network Cabler: JACK MEASUREMENT RESULTS: Intervals: Rate: 89 [place]: 144 QRSD: 130 QT: 390 QTc: 474 [place]: P: 65 UT: 144 QRS: -90 T: 59 INTERPRETIVE STATEMENTS: Normal sinus rhythm Left axis deviation Right bundle branch block Inferior infarct, age undetermined Cannot rule out Anterior infarct, age undetermined Lateral injury pattern ACUTE MD Abnormal ECG Compared to ECG 05/16/2019 18:20:16 Left-axis deviation now present Right bundle-branch block now present Ventricular premature complex(es) no longer present Prolonged QT interval no longer present Myocardial infarct finding still present Electronically Signed On 05-18-19 11:19:06 CDT by Oscar Kasper
[2019-05-18 13:00] VITALS: TEMP 98.8
--- NOTE | 2019-05-18 17:11 | PN ---
Subjective: Patient had right heart catheterization with LAD stent placed yesterday. Doing well; ho wever, she had 2 episodes of what she describes as chest pain, including one this morning, so we went ahead and kept her for 1 more day for observation. Objective: Vital Signs: The patient's blood pressure 115/75, pulse 80, temperature at 97.7. Heart: Regular rate and rhythm. Chest: Clear to auscultation. Abdomen: Soft, benign. Bowel sounds are active. Extremities: No edema. No cyanosis. Peripheral pulses are felt. Neurological: Alert, oriented, nonfocal. Grossly intact. Laboratory Data: CBC noted hemoglobin 11.5, hematocrit 34.2. Rest of CBC noted. Chemistry: BUN 22 , creatinine 0.88. Rest of chemistry also noted. Assessment And Plan: Acute myocardial infarction, subendocardial, status post LAD stent placement. Patient clinically stable, however, with a complaint of chest pain, that was brief, we will observe t he patient for 1 more day, keep her in the hospital. Meanwhile, continue current treatment. Look or ders for details. MFS/MODL Voice ID: [id number] Report ID: [id number]
[2019-05-18] MEDS: ATORVASTATIN 80 MG TAB PO SCH (20:20)
[2019-05-19] MEDS: ASPIRIN EC 81 MG TAB PO SCH (08:00)
[2019-05-19] MEDS: METOPROLOL TAR 50 MG TAB PO SCH (08:01)
[2019-05-19] MEDS: PANTOPRAZOLE 40MG TABLET PO SCH (08:01)
[2019-05-19] MEDS: CLOPIDOGREL 75 MG TABLET PO SCH (08:01)
[2019-05-19] MEDS: LISINOPRIL 20 MG TAB PO SCH (08:01)
[2019-05-19 08:02] VITALS: BP 129/74
[2019-05-19 08:08] VITALS: O2SAT 96
--- NOTE | 2019-05-19 11:08 | EKG ---
Test Date: 2019-05-19 Test Time: 09:12:40 Shuttle Car Operator: ROSA MEASUREMENT RESULTS: Intervals: Rate: 85 CT: 136 QRSD: 120 QT: 384 QTc: 456 [place]: P: 50 CT: 136 QRS: -51 T: 81 INTERPRETIVE STATEMENTS: Normal sinus rhythm Right bundle branch block Left anterior fascicular block Bifascicular block Inferior infarct, age undetermined Anterior infarct, age undetermined T wave abnormality, consider lateral ischemia Abnormal ECG Compared to ECG 05/18/2019 07:52:54 Left anterior fascicular block now present Bifascicular block now present T-wave abnormality now present Possible ischemia now present Left-axis deviation no longer present Myocardial infarct finding still present Electronically Signed On 05-19-19 11:06:58 CDT by Lance Renee
== END 2019-05-19 11:12 | disposition home or self-care (01) | DRG 247 ==
LOC: ER 20:39 → OBSVTOIN 05-15 00:43 → ERHOLD 05-15 00:43 → 2ND 05-15 00:51 → 3RD-ICU 05-15 09:56 → 4TH 05-18 13:15
PROVIDERS: ADMIT Internal Medicine; ATTEND Internal Medicine
PROC: 027034Z Dilation of Coronary Artery, One Artery with Drug-eluting Intraluminal Device, Percutaneous Approach (ICD-10-PCS; principal; 2019-05-17)
PROC: 4A023N7 Measurement of Cardiac Sampling and Pressure, Left Heart, Percutaneous Approach (ICD-10-PCS; 2019-05-17)
PROC: B201YZZ Plain Radiography of Multiple Coronary Arteries using Other Contrast (ICD-10-PCS; 2019-05-17)
DX: I21.4 Non-ST elevation (NSTEMI) myocardial infarction (principal); I49.3 Ventricular premature depolarization; I25.10 Atherosclerotic heart disease of native coronary artery without angina pectoris; I10 Essential (primary) hypertension; Z95.2 Presence of prosthetic heart valve
CPT/HCPCS: 36415; 71045; 80048; 80053; 80061; 80076; 83735; 83880; 84439; 84443; 84484; 85025; 85347; 85610; 93005; 93306; 93454; 94760; 99285; C1725; C1760; C1893; C9600; J0583; J1650; J2250; J2405; J3010; J7030

== ENCOUNTER 2019-05-19 20:20 | Emergency (ER) | payer OTHER ==
[2019-05-19] MEDS ORDERED: Caclcium Chloride 10% INJ SYR IV ONE (20:21)
[2019-05-19] MEDS ORDERED: EPINEPHrine 1 MG/10 ML SYR IV ONE (20:21)
--- OUTSIDE RECORDS SUMMARY | 2019-05-19 20:23 | XMS REPORT | Clinical Summary ---
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/22/2018 Orders Only Cardiology Shi Chen MA S/P TAVR (transcatheter aortic valve replacement) (Primary Dx) after 05/18/2018 Family History Medical History Relation Name Comments [...] Vital Signs Vital Sign Reading Time Taken Comments Blood Pressure 155/82 11/12/2018 12:49 PM OWNER MANAGER Pulse 92 11/12/2018 12:49 PM OWNER MANAGER Temperature 36.3 C (97.3 F) 11/12/2018 12:49 PM OWNER MANAGER Respiratory Rate 16 11/12/2018 12:49 PM OWNER MANAGER Oxygen Saturation - - Inhaled Oxygen Concentration - - Weight 52.2 kg (115 lb) 11/12/2018 12:49 PM OWNER MANAGER Height 152.4 cm (5') 11/12/2018 12:49 PM OWNER MANAGER Body Mass Index 22.46 11/12/2018 12:49 PM OWNER MANAGER Plan of Treatment Date Type Specialty Care Team Description 11/11/2019 Multidisciplinary Visit Cardiology Juan Yeboah MD [address] [address] Health Maintenance Due Date Last Done Comments SHINGLES VACCINES (#1) 1981 65+ PNEUMOCOCCAL VACCINE (1 of 2 - PCV13) 1996 INFLUENZA VACCINE 04/22/2019 Procedures Procedure Name Priority Date/Time Associated Comments Diagnosis ECG 12-LEAD Routine 11/12/2018 12:51 S/P TAVR Results for this PM OWNER MANAGER (transcatheter procedure are in aortic valve the results replacement) section. ECHOCARDIOGRAM 2D Routine 11/12/2018 10:31 S/P TAVR Results for this COMPLETE W MMODE AM OWNER MANAGER (transcatheter procedure are in SPECTRAL COLOR DOPPLER aortic valve the results (65955) replacement) section. after 05/18/2018 Results ECG 12 lead (11/12/2018 12:51 PM OWNER MANAGER) Ventricular rate 79 [facility] Atrial rate 79 [facility] VA interval 126 [facility] QRSD interval 122 [...] 19-NOV-2016)-Anterolateral infarct ( cited on or before [facility] 19-NOV-2016)-Abnormal ECG-In automated comparison with ECG of 12-NOV-2018 12: 51,-No significant change was found- Specimen Narrative Performed At Performing Organization Address City/State/Zipcode Phone Number [facility] [address] [place] [address] Echocardiogram complete w contrast and 3D if needed (11/12/2018 10:31 AM OWNER MANAGER) Specimen Narrative Performed At [facility] Echocardiography Report Pat.Name[id number] .Date: 11/12/2018 Refer.MD:JUAN YEBOAH MD Exam Time: 10:07:00 AM Study Type:Routine Echo Height:60inWeight: 115lb BSA: 1.48 m2 DOBAge:1930,88Y Sex: FEMALEBP:167/87 HR:75 bpm Sonogrphr: Joan Balbuena, RCS, RCCS, CCT Pat. Stat.:OutpatientRoom[facility] TapeVol: [facility], Study Status:Final Echo Event ID:[id number] Order ID:[id number] Reason for Study:S/P TAVR (transcatheter aortic valve [...] RAPof 5 mmHg. MEASUREMENTS: 2D Parasternal Long Huffman LVOT 1.7 cmLA Ds4.3 cm LVIDd4.8 cmIndex3.2 cm/m Ao An2.2 cm LVIDs3.3 cmAo Rtd 2.4 cm Index1.6 cm/m LV%fs 30.7 % LV Vzzp965.3 g(87-129) IVSd 1.3 cmLVM Hrrku984.3 g/m2 LVPWd0.9 cmRWT0.4 LA Volume LA Vol75.1 hgOhhby27.8 ml/m RA Sng Plane RA Area 13.8 cm2(8.3-19.5) RA Vol32.7 ml Index22.1 ml/m RA LngAx 4.8 cm DOPPLER AV For Flow/JULI AV pkVel 152.1 cm/s (100-170) AV AC/ET 0.3 AV mnVel99.3 cm/Bubba TVI30.4 cm AV pkPG9.3 mmHgAVpkAcRt 3100.3 cm/s2 AV Mean G4.8 mmHgAV MdIq438.3 cm/s2 AV AC 80 msec (83-118) AV [...] Radiology Results In - 11/13/2018 2:56 PM OWNER MANAGER [facility] Echocardiography Report Pat.Name: RADHA TRAN Nancy.ID: [id number] St.Date: 11/12/2018 Refer.MD: JUAN YEBOAH MD Exam Time: 10:07:00 AM Study Type:Routine Echo Height: 60in Weight: 115lb BSA: 1.48 m2 Age: 11 1930,88Y Sex: FEMALE BP: 167/87 HR: 75 bpm Sonogrphr: Joan Balbuena, RCS, RCCS, CCT Pat. Stat.:Outpatient Room: [address] Vol: [facility], Study Status:Final Echo Event ID:[id number] Order ID: [id number] Reason for Study:S/P TAVR (transcatheter aortic valve [...] of 5 mmHg. MEASUREMENTS: 2D Parasternal Long Huffman LVOT 1.7 cm LA Ds 4.3 cm [...] Organization Address City/State/Zipcode Phone Number [facility] [address] [place] [address] after 05/18/2018 Insurance Payer Benefit Plan / Subscriber ID Effective Dates Phone Address Type Group MEDICARE MEDICARE PART A xxxxxxxxxx 1996-Present [place], [place] Medicare AND B AETNA AETNA xxxxxxxxx 2000-Present O HMO,POS,EPO, MC/EC ([facility] [place]) [place] [address] Advance Directives For more information, please contact: [phone] Type Date Recorded Patient Service Engineer Explanation Advance Directives, Living Will 11/14/2014 1:17 PM and Medical Power of Clinical Case Manager
--- NOTE | 2019-05-19 21:49 | EDPHYS ---
Physician Documentation [facility] Name: Radha Tran Age: 88 yrs Sex: Female : 1930 Arrival Date: 05/19/2019 Time: 20:22 Bed 4 Private MD: ED Physician Mars Wetzel HPI: 05/19 21:39 This 88 yrs old Female presents to ER via EMS with complaints of CPR. jr8 21:39 Preceding the arrest, the patient collapsed. The arrest occurred at home. Pre-hospital jr8 course: The arrest was witnessed by family. Bystanders at the scene did not perform CPR. EMS care prior to arrival: initiation of ACLS, peripheral IV, was successfully placed. intubation oxygen, by BVM to assist ventilations. 100% by ET tube. ACLS details: Initial rhythm was PEA. The presenting rhythm is asystole. Airway: Ambu assist ventilation, oral intubation, Medications given by EMS prior to arrival - Epinephrine IV x 4 doses, Bicarb . The patient has not experienced similar symptoms in the past. The patient has been recently seen by a physician:. Family stated that patient was released yesterday from hospital after suffering heart attack and having stent placed. Stated that she had been doing well and was feeling well today. While at home this evening had reached up and grabbed her upper back and said it hurt and then immediately collapsed. EMS called at that time. < 10 min down time to EMS ACLS began. Historical: - Allergies: 21:03 Codeine; fc - Home Meds: 21:03 alendronate 70 mg Oral tab 1 tab once wkly for Post-Menopausal Osteoporosis [Active]; fc aspirin 81 mg Oral TbEC 1 tab once daily [Active]; lisinopril 10 mg Oral tab once daily for Hypertension [Active]; Norvasc 5 mg Oral tab 1 tab once daily [Active]; - PMHx: 21:03 Hypertension; Osteoporosis; fc - PSHx: 21:03 aortic valve replacement; Heart stents; fc - Immunization history:: Adult Immunizations unknown. - Social history:: Smoking status: unknown. - Ebola Screening: : Unable to complete screening because. ROS: 21:39 Unable to obtain ROS due to patient distress. jr8 Exam: 21:39 Head/Face: Normocephalic, atraumatic. Eyes: Pupils equal round fixed. No obvious jr8 trauma or scleral abnormality noted Neck: Trachea midline. Subcutaneous emphysema present Cardiovascular: Patient without palpable pulses. Asystole on monitor Respiratory: Mechanical breaths being given with equal chest rise and fall with normal sounds bilaterally at a rate of 1 breath every 5 seconds Abdomen/GI: Soft with no distension. No obvious trauma Skin: skin dry and cool with no obvious abnormal lesions present Vital Signs: 20:00 BP 0 / 0; Pulse 0; Resp 0; Pulse Ox 0% ; Pain 0/10; tl1 Jaimie Coma Score: 21:39 Eye Response: none(1). Verbal Response: none(1). Motor Response: none(1). Modifying jr8 Factors: Intubated. Total: 3. MDM: 20:30 Patient medically screened. jr8 21:39 Data reviewed: vital signs, nurses notes. Counseling: I had a detailed discussion with [facility] the patient and/or guardian regarding: the historical points, exam findings, and any diagnostic results supporting the discharge/admit diagnosis. Administered Medications: 20:21 Drug: EPINEPHrine 0.1mg/mL 1:10,000 1 mg {Note: to I/O per Bianca RN.} Route: IVP; Site: Other; 20:21 Drug: Calcium Chloride 10% 10 ml {Note: to I/O per bianca RN.} Route: IVP; Site: Other; 20:23 Drug: Sodium Bicarbonate 1 amp {Note: to I/O per Bianca RN.} Route: IVP; Site: Other; 20:23 Drug: EPINEPHrine 0.1mg/mL 1:10,000 1 mg {Note: to I/O per Bianca RN.} Route: IVP; Site: Other; 20:25 Drug: EPINEPHrine 0.1mg/mL 1:10,000 1 mg {Note: per Bianca RN.} Route: IVP; Site: left antecubital; Point of Care Testing: Blood Glucose: 20:24 Blood Glucose: 334 mg/dL; Ranges: Critical Glucose Levels:Adult <50 mg/dl or >400 mg/dl <40 mg/dl or >180 mg/dl Disposition: 21:39 Critical Care:. . [facility] Disposition: Patient pronounced on 05/19/19 20:26 by Kd Jose. Impression: Cardiac arrest. - Released to Home. Critical care time excluding procedures: 21:39 Critical care time: Bedside Care: 15 minutes, Family Intervention: 15 minutes. Total jr8 time: 30 minutes Signatures: Amanda Gandhi RN RN Kd Jose PA PA jr8 Bianca Coe RN RN tl1 Corrections: (The following items were deleted from the chart) 23:20 21:48 05/19/2019 21:48 Patient pronounced on 05/19/2019 at 20:26 by Kd Jose. tl1 Impression: Cardiac arrest. Released to Home. jr8
--- NOTE | 2019-05-19 21:49 | ER ---
Nurse's Notes [facility] Name: Radha Tran Age: 88 yrs Sex: Female : 1930 Arrival Date: 05/19/2019 Time: 20:22 Bed 4 Private MD: Diagnosis: Cardiac arrest Presentation: 05/19 20:00 Initial Sepsis Screen: Does the patient have a suspected source of infection? No. tl1 Patient's initial sepsis screen is negative. 20:18 Presenting complaint: EMS states: that they were toned for unresponsive pt. Family told fc them that pt complained of severe back pain and then collapsed on the floor in front of them. Pt had NC last week with heart cath done. Was just d/c'd from hospital yesterday. Care prior to arrival: Assisted ventilation, Oral intubation, ETT 6.0, 18 at gums CPR via thumper performed by EMS and is still in progress Medication(s) given: EPi x 4, NaBicarb 75 mg, IV initiated. I/O to proximal tib on right side Glucose check: 109 Oxygen administered. via AMBU bag NGT to left nare 12 icelandic. Compressions began prior to arrival. 20:18 Method Of Arrival: EMS: [facility] 20:18 Acuity: SANCHEZ 1 20:18 Transition of care: patient was not received from another setting of care. Onset of fc symptoms was May 19, 2019. Risk Assessment: Do you want to hurt yourself or someone else? Unable to obtain. Initial Sepsis Screen: Does the patient meet any 2 criteria?. Triage Assessment: 20:00 General: Behavior is unresponsive. tl1 Historical: - Allergies: 21:03 Codeine; fc - Home Meds: 21:03 alendronate 70 mg Oral tab 1 tab once wkly for Post-Menopausal Osteoporosis [Active]; fc aspirin 81 mg Oral TbEC 1 tab once daily [Active]; lisinopril 10 mg Oral tab once daily for Hypertension [Active]; Norvasc 5 mg Oral tab 1 tab once daily [Active]; - PMHx: 21:03 Hypertension; Osteoporosis; fc - PSHx: 21:03 aortic valve replacement; Heart stents; fc - Immunization history:: Adult Immunizations unknown. - Social history:: Smoking status: unknown. - Ebola Screening: : Unable to complete screening because. Screenin:00 Fall Risk IV access (20 points). tl1 20:18 Abuse screen: Denies threats or abuse. Nutritional screening: No deficits noted. Tuberculosis screening: No symptoms or risk factors identified. Assessment: 20:00 CPR assessment: unresponsive, intubated, mechanical ventilation, cyanotic. Cardiac tl1 rhythm is asystole. 20:20 General: Appears . Pain: Unable to use pain scale. Patient is unresponsive. Neuro: tl1 Level of Consciousness is unresponsive. Cardiovascular: Heart tones absent Capillary refill is > 3 seconds Rhythm is asystole. Respiratory: Respiratory effort is intubated. CPR in progress Respiratory pattern is intubated. CPR in progress Crepitus is noted on right supraclavicular area, right clavicle, left supraclavicular area, left clavicle, anterior aspect of right upper chest and anterior aspect of left upper chest. GI: Abdomen is non-distended. EENT: Nares ng tube noted to left nare. 20:49 General:. tl1 20:55 Reassessment: Kd COLON in to speak to family. fc 21:25 Reassessment: Kd COLON spoke with Dr Renee to notify him of pts . fc 21:47 Derm: Skin is dry, Skin is dusky, Skin temperature is cool. tl1 Vital Signs: 20:00 BP 0 / 0; Pulse 0; Resp 0; Pulse Ox 0% ; Pain 0/10; tl1 Jaimie Coma Score: 21:39 Eye Response: none(1). Verbal Response: none(1). Motor Response: none(1). Modifying jr8 Factors: Intubated. Total: 3. ED Course: 20:18 Patient has correct armband on for positive identification. Bed in low position. Call light in reach. 20:18 Arm band placed on Patient placed in an exam room, on a stretcher. fc 20:21 Inserted saline lock: 20 gauge in left antecubital area, using aseptic technique. fc 20:22 Patient arrived in ED. ds1 20:29 Kd Jose PA is PHCP. jr8 20:30 Mars Wetzel MD is Attending Physician. jr8 20:36 Triage completed. fc 20:39 Maintain EMS IV. I/O to prox right tib. fc 21:47 Kd Jose PA is Pronouncing Provider. jr8 23:15 No provider procedures requiring assistance completed. tl1 23:17 Patient transferred, IV remains in place. tl1 Administered Medications: 20:21 Drug: EPINEPHrine 0.1mg/mL 1:10,000 1 mg {Note: to I/O per Bianca RN.} Route: IVP; Site: Other; 20:21 Drug: Calcium Chloride 10% 10 ml {Note: to I/O per bianca RN.} Route: IVP; Site: Other; 20:23 Drug: Sodium Bicarbonate 1 amp {Note: to I/O per Bianca RN.} Route: IVP; Site: Other; 20:23 Drug: EPINEPHrine 0.1mg/mL 1:10,000 1 mg {Note: to I/O per Bianca RN.} Route: IVP; Site: Other; 20:25 Drug: EPINEPHrine 0.1mg/mL 1:10,000 1 mg {Note: per Bianca RN.} Route: IVP; Site: left antecubital; Point of Care Testing: Blood Glucose: 20:24 Blood Glucose: 334 mg/dL; Ranges: Outcome: 20:06 Outcome Patient tl1 23:15 Patient : Time of 20:06 Pronounced by Kd COLON Body to home.tl1 23:15 Condition: 23:20 Patient left the ED. tl1 Signatures: Amanda Gandhi RN RN Silvai ds1 Kd Jose PA PA [facility] [place] Bianca Coe RN RN tl1
== END 2019-05-19 23:20 | disposition expired ==
LOC: ER 20:20
DX: I46.9 Cardiac arrest, cause unspecified (principal); I10 Essential (primary) hypertension; I25.2 Old myocardial infarction; Z95.4 Presence of other heart-valve replacement; Z95.818 Presence of other cardiac implants and grafts; Z88.5 Allergy status to narcotic agent; Z79.82 Long term (current) use of aspirin
CPT/HCPCS: J0171